=== PATIENT | female | born 1995 | race Caucasian/White ===

== ENCOUNTER 2021-06-01 20:56 | Observation (INO) | payer OTHER, SELFPAY ==
--- NOTE | ~2021-06-01 | CT_ITS ---
EXAMINATION: CT abdomen pelvis w con INDICATION: Left lower quadrant and suprapubic pain TECHNIQUE: Computed tomographic images of the abdomen and pelvis were obtained after the administrati on of 100 cc of Omnipaque 350 intravenous contrast. The dose-length product (DLP) was 344.78 mGy-cm. Automated exposure control and iterative reconstruction technique were employed. COMPARISON: None available FINDINGS: The lung bases are clear. The heart size is normal. The liver, spleen, pancreas, gallbladde r, and adrenal glands are normal. Cysts of the kidneys measure up to 2.6 cm on the left. No pathologi bill enlarged abdominal or pelvic lymph nodes are identified. There is no free intraperitoneal gas o r evidence of bowel obstruction. There appears to be an approximately 7.9 x 7.1 cm degenerating fibro id of the uterine fundus. The left ovary appears to be enlarged and positioned posterior to the uteru s. The visualized osseous structures are unremarkable. IMPRESSION: 1. Enlarged left ovary positioned posterior to the uterus. Recommend pelvic ultrasound to evaluate fo r possible mass and/or ovarian torsion. These findings and recommendations were discussed with Dr. Alfie MD in the Emergency Department at 2320 hours on 06/01/2021. Reviewed, dictated and finalized at location F. ING MILL OPERATOR IMPRESSION: 1. Enlarged left ovary positioned posterior to the uterus. Recommend pelvic ult rasound to evaluate for possible mass and/or ovarian torsion. These findings an d recommendations were discussed with Dr. Claudy Garcia MD in the Emergency Department at 2320 hours on 06/01/2021.
--- NOTE | ~2021-06-01 | US_ITS ---
EXAMINATION: US pelvic complete w TV DATE: 06/02/2021 00:25 INDICATION: Pelvic mass. Enlarged left ovary. Left pelvic pain. TECHNIQUE: Multiple transabdominal and transvaginal sonographic images of the pelvis were obtained. COMPARISON: CT abdomen and pelvis 06/01/2021 FINDINGS: TRANSABDOMINAL ULTRASOUND: The uterus measures 7.2 x 4.6 x 4.2 cm. There is a small volume of free fluid in the pelvis. TRANSVAGINAL ULTRASOUND: There is a 7.6 cm fibroid in the uterine fundus. The endometrial complex measures 8 mm in thickness. The right ovary is not visualized. The left ovary measures 6.3 x 3.7 x 5.5 cm. There is vascular flow in left ovary. IMPRESSION: 1. Enlarged left ovary with vascular flow present. 2. 7.6 cm uterine fibroid. 3. Small volume of free fluid in the pelvis. Reviewed, dictated and finalized at location A. ITATIVE FIELD PROJECT MANAGER
[2021-06-01 21:00] VITALS: BP 135/77; PULSE 103; RESP 18; TEMP 36.6; O2SAT 100
--- NOTE | 2021-06-01 21:17 | ED.ABDPAIN ---
HPI - Abdominal Pain General Chief Complaint: Abdominal Pain Stated Complaint: LLQ pain, nausea Time Seen by Provider: 06/01/21 21:05 Source: patient History of Present Illness HPI narrative: Patient presents with left lower quadrant abdominal pain. Rectum symptoms that started today have been consistent but wax and wanes in intensity. The pain is a sharp pain that does not radiate there is no clear aggravating or alleviating factors. When her pain is intense she feels nauseous wants to throw up she denies any urinary symptoms and no discharge or bleeding or changes in stool. She denies any fevers or prior abdominal surgeries. Related Data Allergies Allergy/AdvReac Type Severity Reaction Status Date / Time amoxicillin [From Augmentin] Allergy Hives Verified 06/01/21 20:59 clavulanic acid Allergy Hives Verified 06/01/21 20:59 [From Augmentin] Penicillins Allergy Unknown Verified 06/01/21 20:59 Review of Systems Review of Systems: CONSTITUTIONAL: Denies fever, chills, or sweats. EYES: Denies visual changes, redness, or discharge. ENT: Denies rhinorrhea, congestion, sore throat, or otalgia. CARDIOVASCULAR: Denies chest pain, palpitations, or edema. RESPIRATORY: Denies cough or dyspnea. GASTROINTESTINAL: Abdominal pain with nausea GENITOURINARY: Denies dysuria or hematuria. SKIN: Denies rash or itching. MUSCULOSKELETAL: Denies back pain, joint pain, or myalgia. NEUROLOGIC: Denies headache, numbness, dizziness, or weakness. PSYCHIATRIC: Denies anxiety or depression. All systems reviewed & are unremarkable except as noted in HPI and below PMFSH Past Medical History Medical History Patient denies significant medical history Social History Social History Living arrangements: with family Exam Narrative: GENERAL: Well-appearing, well-nourished, and in no acute distress. HEAD: Normocephalic, atraumatic. EYES: PERRLA and EOMI. ENT: Nares clear, no rhinorrhea or epistaxis. Mucous membranes moist. NECK: Supple. No masses. No JVD CHEST: Clear to auscultation. No respiratory distress. No wheezes rales or rhonchi HEART: Regular rate and rhythm. No murmur heard. Normal peripheral pulses. ABDOMEN: Moderate suprapubic tenderness no rebound or guarding soft, nondistended, normal active bowel sounds. EXTREMITIES: Normal range of motion. No edema. SKIN: Warm, dry, no rash. NEURO: No focal deficits. Alert and oriented x3. PSYCH: Normal mood and affect. Course Reevaluation(s) Reevaluation #1: Patient is resting more comfortably results thus far reviewed with patient plan to consult TECHNOLOGY LAB TEACHER patient's primary TECHNOLOGY LAB TEACHER is Dr. Ellington Date: 06/02/21 Time: 01:37 Reevaluation #2: Patient was taken to the operating room for further evaluation of her symptoms by TECHNOLOGY LAB TEACHER. Date: 06/02/21 Time: 03:33 Consultations Consultation #1: Dr. Castillo is on-call for Dr. Ellington and is currently reviewing images to assist with developing appropriate care plan. Date: 06/02/21 Time: 01:50 Consultation #2: Dr. Castillo TECHNOLOGY LAB TEACHER at bedside evaluating the patient Date: 06/02/21 Time: 02:27 Vital Signs Vital signs: Vital Signs Temperature 36.6 C 06/01/21 21:00 Pulse Rate 103 H 06/01/21 21:00 Respiratory Rate 18 06/01/21 21:00 Blood Pressure 135/77 06/01/21 21:00 Pulse Oximetry 100 06/01/21 21:00 Temperature 36.6 C 06/02/21 04:50 Pulse Rate 96 06/02/21 05:05 Respiratory Rate 20 06/02/21 05:05 Blood Pressure 118/61 06/02/21 05:05 Pulse Oximetry 100 06/02/21 05:05 MDM - Abdominal Pain MDM Narrative Medical decision making narrative: Patient presented with intermittent severe abdominal pain which started this evening. Initial valuation patient appeared comfortable at abdominal exam was concerning labs obtained were clinically unremarkable do abdominal exam and imaging was obtained which was concerning for uterine and ovarian
[2021-06-01 21:48] LABS: Basophils Percent Auto 0.3 % (0.2-1.2); Eosinophils Percent Auto 0.5 % (0-4.4); Hematocrit 41.3 % (37.0-47.0); Hemoglobin 13.9 g/dL (12.0-15.0); Immature Granulocyte Absolute 0.02 K/mm3 (0.00-0.031); Immature Granulocyte Percent A 0.3 % (0-0.5); Lymphocytes Absolute Auto 2.51 K/mm3 (0.9-3.2); Lymphocytes Percent Auto 32.7 % (18.3-44.2); Mean Corpuscular HGB Conc 33.7 g/dl (32-36); Mean Corpuscular Volume 94.9 fl (80-100); Mean Platelet Volume 9.6 fl (7.4-10.4); Monocytes Absolute Auto 0.6 K/mm3 (0.1-0.6); Monocytes Percent Auto 8.2 % (2.6-8.5); Neutrophils Absolute Auto 4.5 K/mm3 (1.3-6.7); Platelet Count Result 288 k/mm3 (150-375); Red Blood Count 4.35 M/mm3 (4.2-5.4); Red Cell Distribution Width 11.7 % (11.5-14.5); White Blood Count 7.7 K/mm3 (4.5-10.0)
[2021-06-01 21:51] LABS: Add Urine Microscopic? NO; Appearance Urine Clear (Clear); Bilirubin Urine Negative (Negative); Blood Urine Negative (Negative); Color Urine Straw (Yellow); Glucose Urine UA Negative (Negative); Ketones Urine Negative (Negative); Leukocyte Esterase Ur Negative LEU/UL (Negative); Nitrate Urine Negative (Negative); Protein Urine Negative (Negative); Specific Grav Ur 1.017 (1.001-1.035); Urobilinogen Urine Negative mg/dL (<2.0)
[2021-06-01] MEDS: SODIUM CHLORIDE 0.9% IV 1,000 ML 999 ML IV CONT (21:54)
[2021-06-01 21:57] LABS: Lactic Acid Reflex 1.4 mmol/L (0.7-2.1)
[2021-06-01 22:08] LABS: Alanine Aminotransferase 30 U/L (4-35); Albumin Level 4.9 g/dL (3.5-5.1); Alkaline Phosphatase 50 U/L (38-126); Anion Gap 10 mmol/L (8-16); Aspartate Amino Transferase 31 U/L (14-36); Bilirubin,Total 0.4 mg/dL (0.2-1.3); Blood Urea Nitrogen 16 mg/dL (7-17); Carbon Dioxide 27 mmol/L (22-30); Chloride 103 mmol/L (98-107); Estimated CRCL calculation 136 ml/min; Estimated Glomerular Filt Rate > 60; Glucose 106 mg/dL (65-110); Lipase 135 U/L (23-300); Potassium 3.8 mmol/L (3.4-5.0); Sodium 140 mmol/L (137-145)
[2021-06-01 23:41] LABS: Beta HCG Quantitative < 2.39 mIU/ML
[2021-06-02] VITALS (7 sets, daily range): BP systolic 100–118; BP diastolic 46–68; PULSE 77–96; RESP 15–20; TEMP 36.6–36.9; O2SAT 100
[2021-06-02] MEDS: MORPHINE SULFATE (*CRX) 4 MG/ML INJ IV PUSH (00:26)
--- NOTE | 2021-06-02 02:42 | PM.IMHP ---
H&P: HPI History of Present Illness Date/Time: 06/02/21 02:42 Dejah is a 26yo G0, LMP 05/11/21 who presented to the ER with acute, intermittent LLQ pain. She reports the pain started at 11am and has been intermittent, sharp in nature. She reports each episode of pain has become more painful causing her to cry. She now has associated nausea. She and her have been trying to conceive; bhcg negative today. UA/labs normal. CT and WAREHOUSE PROCESSOR US show a large fundal fibroid measuring 6.5x7cm. The right ovary is not visualized. The left ovary is measuring 6cm; with a small 1.6cm cyst-- but on review of imaging the ovary looks edematous. She has not been on OCPs as she's trying to conceive and denies a h/o ovarian cysts or knowing about the uterine fibroid. Chief Complaint: LLQ pain Review of Systems Constitutional: Constitutional: Denies chills and Denies fever(s) Cardiovascular: Cardiovascular: Denies chest pain and Denies rapid heart rate Respiratory: Respiratory: Denies dyspnea Gastrointestinal: Gastrointestinal: Reports abdominal pain, Denies constipation, Denies diarrhea, Reports nausea and Denies vomiting Genitourinary: Genitourinary: Denies abnormal vaginal bleeding, Reports menorrhagia, Reports pelvic pain, Denies vaginal discharge, Denies vaginal dryness and Denies vaginal odor Neurologic: Denies dizziness and Denies headache(s) [facility] Past Medical History Medical History Patient denies significant medical history Social History Social History Living arrangements: with family Meds Home Medications and Allergies Allergies Allergy/AdvReac Type Severity Reaction Status Date / Time amoxicillin [From Augmentin] Allergy Hives Verified 06/01/21 20:59 clavulanic acid Allergy Hives Verified 06/01/21 20:59 [From Augmentin] Penicillins Allergy Unknown Verified 06/01/21 20:59 Vital Signs Vital Signs - 24 hr 06/01/21 21:00 Temperature 97.9 F Pulse Rate 103 H Respiratory Rate 18 Blood Pressure 135/77 Pulse Oximetry 100 Exam Const: General: cooperative, healthy appearing and no acute distress (pain noted with/after exam) Resp: Effort & Inspection: normal respiratory effort Cardio: Rate: regular rate GI: Inspection: non-distended GI Palp: Yes abdominal tenderness, Yes Soft to palpation and Yes Guarding due to palpation present (GI) : External Female Exam: normal external appearance Bimanual exam- vagina & uterus: uterine mobility normal, cervical motion tenderness and enlarged (large fundal fibroid- nontender to palpation) Bimanual Exam- Adnexa, other: tender (on mild palpation) on the left H&P: Results Labs Labs: Short CBC 06/01/21 Range/Units 21:41 WBC 7.7 (4.5-10.0) K/mm3 Hgb 13.9 (12.0-15.0) g/dL Hct 41.3 (37.0-47.0) % Plt Count 288 (150-375) k/mm3 BMP 06/01/21 21:41 Sodium 140 Potassium 3.8 Chloride 103 Carbon Dioxide 27 BUN 16 Creatinine 0.50 L Glucose 106 Calcium 9.0 Liver Function 06/01/21 Range/Units 21:41 Total Bilirubin 0.4 (0.2-1.3) mg/dL AST 31 (14-36) U/L ALT 30 (4-35) U/L Alkaline Phosphatase 50 (38-126) U/L Albumin 4.9 (3.5-5.1) g/dL Urine 06/01/21 Range/Units 21:41 Urine Color Straw (Yellow) Urine Appearance Clear (Clear) Urine pH 7.0 (5.0-9.0) Ur Specific [place] 1.017 (1.001-1.035) Urine Protein Negative (Negative) mg/dL Urine Glucose (UA) Negative (Negative) mg/dL Assessment and Plan Assessment and plan (1) Acute pelvic pain, female: Code(s): R10.2 - Pelvic and perineal pain Status: Acute (2) Ovarian mass, left: Code(s): N83.8 - Other noninflammatory disorders of ovary, fallopian tube and broad ligament Status: Acute Additional Plan - CT and US confirm enlarged ovary; pt has symptoms and pain on exam concerning for ovarian torsion
--- NOTE | 2021-06-02 03:17 | WPDHPUPDATE1 ---
History and Physical Update Update Date/Time: 06/02/21 03:17 History and Physical has been reviewed, including an updated exam of the patient. There are NO changes in the patient's condition. Risks, benefits, and alternatives have been discussed and questions answered. Patient agrees to proceed with procedure.
--- NOTE | 2021-06-02 03:52 | WPDANESEPPF ---
Anes - Initial Pre Proc Eval Procedure: Operation Date: 06/02/21 03:30 Proposed Procedures p Diagnostic Laparoscopy Pos Lap - Tona Castillo MD Date/Time: 06/02/21 03:52 Surgeon: Tona Castillo MD Pre Op Diagnosis: LLQ pain, nausea Patient Data Age: 26 Gender: F Height: 1.7 m Weight: 68.2 kg Last Vital Signs Temp 36.6 C 06/01/21 21:00 Pulse 103 H 06/01/21 21:00 Resp 18 06/01/21 21:00 BP 135/77 06/01/21 21:00 Pulse Ox 100 06/01/21 21:00 Allergies Allergy/AdvReac Type Severity Reaction Status Date / Time amoxicillin [From Augmentin] Allergy Hives Verified 06/01/21 20:59 clavulanic acid Allergy Hives Verified 06/01/21 20:59 [From Augmentin] Penicillins Allergy Unknown Verified 06/01/21 20:59 Laboratory Tests 06/01/21 06/01/21 06/01/21 21:41 21:41 21:41 WBC 7.7 K/mm3 K/mm3 (4.5-10.0) RBC 4.35 M/mm3 M/mm3 (4.2-5.4) Hgb 13.9 g/dL g/dL (12.0-15.0) Hct 41.3 % % (37.0-47.0) MCV 94.9 fl fl (80-100) MCH 32.0 pg pg (26-34) MCHC 33.7 g/dl g/dl (32-36) RDW 11.7 % % (11.5-14.5) Plt Count 288 k/mm3 k/mm3 (150-375) MPV 9.6 fl fl (7.4-10.4) Immature Gran % (Auto) 0.3 % % (0-0.5) Neut % (Auto) 58.0 % % (45.5-73.1) Lymph % (Auto) 32.7 % % (18.3-44.2) [place] % (Auto) 8.2 % % (2.6-8.5) Eos % (Auto) 0.5 % % (0-4.4) Baso % (Auto) 0.3 % % (0.2-1.2) Lymph # (Auto) 2.51 K/mm3 K/mm3 (0.9-3.2) [place] # (Auto) 0.6 K/mm3 K/mm3 (0.1-0.6) Eos # (Auto) 0.0 K/mm3 K/mm3 (0-0.3) Baso # (Auto) 0.0 K/mm3 K/mm3 (0.0-0.1) Abs Immat Gran (auto) 0.02 K/mm3 K/mm3 (0.00-0.031) Absolute Neuts (auto) 4.5 K/mm3 K/mm3 (1.3-6.7) Absolute Nucleated RBC 0.0 K/mm3 K/mm3 (0.0-0.012) Nucleated RBC % 0.0 % % (0.0-0.2) Sodium 140 mmol/L mmol/L (137-145) Potassium 3.8 mmol/L mmol/L (3.4-5.0) Chloride 103 mmol/L mmol/L (98-107) Carbon Dioxide 27 mmol/L mmol/L (22-30) Anion Gap 10 mmol/L mmol/L (8-16) BUN 16 mg/dL mg/dL (7-17) Creatinine 0.50 mg/dL L mg/dL (0.7-1.0) Estim Creat Clear Calc 136 ml/min ml/min Estimated GFR > 60 (59 - ) Glucose 106 mg/dL mg/dL (65-110) Lactic Acid Calcium 9.0 mg/dL mg/dL (8.4-10.2) Total Bilirubin 0.4 mg/dL mg/dL (0.2-1.3) AST 31 U/L U/L (14-36) ALT 30 U/L U/L (4-35) Alkaline Phosphatase 50 U/L U/L (38-126) Total Protein 8.0 g/dL g/dL (6.3-8.2) Albumin 4.9 g/dL g/dL (3.5-5.1) Lipase 135 U/L U/L (23-300) Beta HCG, Quant Urine Color Straw (Yellow) Urine Appearance Clear (Clear) Urine pH 7.0 (5.0-9.0) Ur Specific [place] 1.017 (1.001-1.035) Urine Protein Negative mg/dL mg/dL (Negative) Urine Glucose (UA) Negative mg/dL mg/dL (Negative) Urine Ketones Negative mg/dL mg/dL (Negative) Ur Blood (Man) Negative (Negative) Urine Nitrate Negative (Negative) Urine Bilirubin Negative (Negative) Urine Urobilinogen Negative mg/dL mg/dL (<2.0) Leukocyte Esterase Rfl Negative LOC/UL LOC/UL (Negative) 06/01/21 06/01/21 21:41 21:41 WBC RBC Hgb Hct MCV MCH MCHC RDW Plt Count MPV Immature Gran % (Auto) Neut % (Auto) Lymph % (Auto) [place] % (Auto) Eos % (Auto) Baso % (Auto) Lymph # (Auto) [place] # (Auto) Eos # (Auto) Baso # (Auto) Abs Immat Gran (auto) Absolute Neuts
[2021-06-02] MEDS: LACTATED RINGERS 1,000 ML 30 ML IV CONT ×3 (04:00→04:51)
[2021-06-02] MEDS: BUPIVACAINE/EPINEPHRINE 0.25% 10 ML VIAL 20 ML INFILTRATE (04:31)
--- NOTE | 2021-06-02 05:00 | P.OP_ITS ---
Procedure Note - Detailed Date of Procedure 06/02/21 Pre-op Diagnosis LLQ pain, nausea Post-op Diagnosis other (left ovarian torsion) Procedure Performed Diagnostic laparoscopy, detorsion of ovary Surgeon Tona Castillo MD Air Crew Member Chelsey Pickard Anesthesia general and local (20cc of 0.25% marcaine w/ epi) Indications 26yo G0, LMP 05/11/21 who presented to the ER with intermittent, severe LLQ pain since 11am on 06/01/21. The pain was lasting longer and becoming more severe with associated nausea. US/CT showed an enlarged left ovary; likely edematous. The patients symptoms and exam findings were concerning for ovarian torsion and she was counseled on need for diagnostic laparoscopy. All questions/concerns were addressed and the appropriate consents were signed. Findings Uterus sounded to 8cm; normal cervix. On entry into the abdomen, small amount of clear/yellow fluid was noted. The uterus was noted to have a 7cm fundal fibroid. The right ovary and tube were normal. The left ovary and tube were noted to be torsed x2 around the IP. The left ovary was edematous; no obvious cysts were noted. Good hemostasis at the end of case. Description of Procedure Dejah was taken to the operating room where she was placed under general, endotracheal anesthesia without complications. She was then prepped and draped in the usual sterile fashion in the dorsal lithotomy position in low Armando stirrups, with her arms tucked at her side, and a strap over her chest. A time- out was performed and no preoperative antibiotics were indicated. Attention was turned down below where the Melchor catheter was placed. A bivalved speculum was placed within the vagina and the cervix was easily identified. The anterior lip of the cervix was grasped with a single-tooth tenaculum and the uterus was sounded to 8 cm. The diagnostic uterine manipulator was then placed in the uterus and the balloon was insufflated. My gloves were changed and my attention was turned to the abdomen. An umbilical incision was made and a 5 mm trocar was then placed under direct visualization without complications. Patient was placed in steep Trendelenburg and the above findings were noted. Two additional 5 mm ports were placed in the right and left lower quadrants under direct visualization without complications. The fluid was suctioned free using a suction pipe threading machine operator. The uterus was then elevated with the help of the uterine manipulator and the suction pipe threading machine operator. The right ovary and tube were easily visualized and found to be normal. The left ovary and tube were noted to be torsed twice around its pedicle. Using blunt graspers the ovary was de-torsed without complications and good blood flow was noted. The ovary was examined and no obvious cysts were noted. The ovaries were placed in the posterior cul-de-sac and the uterus was returned to its normal position over them. All instruments were removed from the abdomen. The insufflation was released. The 3 laparoscopic incisions were reapproximated using 4-0 Monocryl in a subcuticular fashion and covered with Dermabond. The incisions were then infiltrated using 0.25% Marcaine with epinephrine to provide better postop pain control. Sponge, lap, instrument, and needle counts were correct at the end of the procedure. Patient was awoken from general anesthesia and taken to recovery in stable conditions with plans of extended recovery until discharge this afternoon. Estimated Blood Loss 5 IV Fluids 1,000 Urine Output 100 Drains No Packing No Pathology none sent Complications No immediate complications Condition stable Disposition other (extended recovery)
--- NOTE | 2021-06-02 06:44 | PC.NURSE ---
This patient, Dejah Horton, was received from PACU on 06/02/21 at 0624 per bed. Patient/family oriented to unit policies and routines.
[2021-06-02] MEDS: DOCUSATE SODIUM 100 MG CAPSULE PO (09:36)
[2021-06-02] MEDS: IBUPROFEN 600 MG TABLET PO (09:36)
--- NOTE | 2021-06-12 10:32 | PM.DS ---
DS: Admitting Diagnosis Discharge Date 06/02/21 Admitting Diagnosis LLQ abdominal pain DS: Discharge Diagnosis Discharge Diagnosis (1) S/P laparoscopy: Code(s): Z98.890 - Other specified postprocedural states Status: Acute (2) Ovarian torsion: Code(s): N83.519 - Torsion of ovary and ovarian pedicle, unspecified side Status: Acute DS: Summary Hospital Course Hospital Course: Dejah is a 26yo G0 who presented to the ER with acute onset, but intermittent LLQ pain associated with nausea. CT and US were performed and showed a left edematous ovary. She was counseled on the findings and concerning for left ovarian torsion and need for diagnostic laparoscopy. She underwent diagnostic laparoscopy where left ovarian torsion was confirmed; no ovarian cyst was noted therefore the ovary was untorsed and found to be normal. She was monitoring outpatient to verify her pain had improved. It decreased to 2/10 (only had incisional pain). She was able to tolerate regular diet, ambulate, and void. She was discharged home in a stable condition with ER return precautions, incision instruction as well as pelvic rest/no heavy lifting. Her medications were sent to her pharmacy and she will follow up outpatient in 2wks. Status at Discharge Functional status at discharge: independent ambulation Overall status at discharge: patient is back to baseline Time Spent with Patient Time attestation: Total time spent providing and/or coordinating discharge services: Time spent: Less than 30 minutes Exam Const: General: cooperative, healthy appearing, comfortable and no acute distress Orientation/consciousness: patient oriented x3 Resp: Effort & Inspection: normal respiratory effort Cardio: Rate: regular rate GI: Inspection: non-distended and incision (c/d/i covered with dermabond) GI Palp: Yes abdominal tenderness (appropriate) and Yes Soft to palpation Auscultation: normal bowel sounds Skin: General skin exam: normal color Neuro: General: patient oriented x3 Extrem: General: normal to inspection Psych: Appearance: grossly normal Affect: normal affect Attitude: cooperative Discharge Plan Discharge Attending physician on discharge: Tona Castillo Consulting providers: Lorenzo Hager ; Jamie Barr V. Discharging Clinician: Tona Castillo Anticipated Discharge Date/Time: 06/02/21 12:00 Patient Disposition: Home, Self-Care Activity: may shower and pelvic rest Diet: regular Discharge Instructions: no heavy lifting x 2 weeks no [address] when taking the percocet Stand Alone Forms: General Discharge Instructions Follow-up/Referrals: Tona Castillo MD [Physician] - 2 Weeks Discharge Medications: New oxycodone-acetaminophen [Percocet] 5-325 mg tablet 2 tablet PO Q4-6H PRN (Reason: pain) 3 Days Qty: 24 RF: 0 ibuprofen 800 mg tablet 800 mg PO TID 10 Days Qty: 30 RF: 0 docusate sodium [Colace] 100 mg capsule 100 mg PO BID 20 Days Qty: 40 RF: 0 Date of admission: 06/02/21 06:14 Primary Care Provider: PHYSICIAN,NOC TECHNICIAN Admitting Provider: Tona Castillo Attending physician on admission: Tona Castillo Condition: Stable
== END 2021-06-02 12:20 | disposition home or self-care (01) ==
LOC: ANHED 21:30 → ANHOBOP 06-02 02:54 → ANHOB2 06-02 06:32
PROVIDERS: Admitting Provider Obstetrics & Gynecology; Emergency Provider Emergency Medicine; Visit Provider Obstetrics & Gynecology
PROC: (CPT 49320; principal; 2021-06-02 03:30)
DX: N83.512 Torsion of left ovary and ovarian pedicle (principal); D25.9 Leiomyoma of uterus, unspecified
CPT/HCPCS: 58999; 36415; 74177; 76830; 76856; 80053; 81003; 81025; 83605; 83690; 84702; 85025; 96361; 96374; 96375; 99285; A9270; G0378; J0131; J0330; J1100; J1885; J2250; J2270; J2405; J2704; J2710; J3010; J7030; J7120; Q9967

== ENCOUNTER 2022-01-29 14:47 | Emergency (ER) | payer OTHER, SELFPAY ==
--- NOTE | 2022-01-29 14:54 | ED.URI ---
HPI - URI/Sore Throat General Chief Complaint: Upper Respiratory Infection Stated Complaint: sorethroat,fever Time Seen by Provider: 01/29/22 14:55 Source: patient Mode of arrival: ambulatory Limitations: no limitations History of Present Illness HPI Narrative: Beth is a 27-year-old female patient presenting to the clinic today with complaints of sore throat and fever times 1-2 days. Highest temp of a 102? F. She reports no known sick contacts. She is currently 6 weeks . She contacted her PCP and they recommend she come here to be evaluated MD elicited complaint: sore throat and nasal congestion Related Data Home Medications Medication Instructions Recorded Confirmed No Home Medications 01/29/22 01/29/22 Allergies Allergy/AdvReac Type Severity Reaction Status Date / Time amoxicillin [From Augmentin] Allergy Hives Verified 01/29/22 15:20 clavulanic acid Allergy Hives Verified 01/29/22 15:20 [From Augmentin] Penicillins Allergy Unknown Verified 01/29/22 15:20 Review of Systems Review of Systems: Pertinent positives per HPI. Patient denies any, rash, headache, visual changes, dizziness, cough, shortness of breath, chest pain, palpitations, nausea, vomiting, diarrhea, constipation, abdominal pain, or any urinary issues. [facility] Past Medical History Medical History Endometriosis determined by laparoscopy Patient denies significant medical history Surgical History Surgical History H/O myomectomy 09/2021 S/P laparoscopy 05/2021 for left ovarian torsion Family History Family History Grandparent Breast cancer Other Diabetes mellitus Hypertension Social History Social History Smoking status: Never smoker Alcohol intake: current Alcohol use details: socially Substance use: never Substance use type: does not use Additional occupation/education comments: health insurance Gender identity (if verbalized by the patient): Female Sexual Orientation (if Verbalized by the Patient): Straight or Heterosexual Comments At the time of my signature, I reviewed and agree with the nursing past medical, surgical, social, and family history. There is no relevant family history pertinent to the patient complaint. Exam Narrative: General: Well-developed, well nourished, in no apparent distress Head: Normocephalic, atraumatic Eyes: Pupils equally round and reactive to light bilaterally, EOM intact, sclera and conjunctive clear, no discharge, lids normal Ears: TMs intact and clear, ear canals clear, no drainage, grossly hearing normal. Nose: Nares patent, clear nasal discharge, no inflammation, no sinus tenderness. Mouth: Oral pharynx without lesions or masses, good dentition, MMM. Oropharynx with Neck: Supple, trachea midline, mild enlargement of anterior cervical nodes, no thyroid masses or goiter palpable. Cardio: Regular rate and rhythm, s1 and s2 normal, no murmur appreciated. Resp: Clear to auscultation bilaterally, no rhonchi, rales, wheezing or rubs Abdomen: Soft, pliable, nontender to palpation, bowel sounds present in all 4 quadrants, no organomegaly, no CVAT tenderness Course Course Emergency Course: Portions of this record may have been created with voice recognition software. Level of Care: Express Care Visit Vital Signs Vital signs: Vital Signs Temperature 37.4 C 01/29/22 14:58 Pulse Rate 117 H 01/29/22 14:58 Respiratory Rate 18 01/29/22 14:58 Blood Pressure 126/64 01/29/22 14:58 Pulse Oximetry 98 01/29/22 14:58 Oxygen Delivery Room Air 01/29/22 14:58 Temperature 37.4 C 01/29/22 14:58 Pulse Rate 117 H 01/29/22 14:58 Respiratory Rate 18 01/29/22 14:58 Blood Pressure 126/64 01/29/22
[2022-01-29 14:58] VITALS: BP 126/64; PULSE 117; RESP 18; TEMP 37.4; O2SAT 98
== END 2022-01-29 16:06 | disposition home or self-care (01) ==
PROVIDERS: Emergency Provider Nurse Practitioner Family
DX: O98.511 Other viral diseases complicating pregnancy, first trimester (principal); B34.9 Viral infection, unspecified; O99.511 Diseases of the respiratory system complicating pregnancy, first trimester; Z3A.01 Less than 8 weeks gestation of pregnancy; J06.9 Acute upper respiratory infection, unspecified; J02.9 Acute pharyngitis, unspecified; Z20.822 Contact with and (suspected) exposure to COVID-19
CPT/HCPCS: 81003; 87081; 87426; 87804; 87880; 99213; C9803; G0463

== ENCOUNTER → 2022-07-06 08:14 | Outpatient (CLI) | payer OTHER, SELFPAY ==
--- NOTE | ~2022-07-06 | US_ITS ---
Limited Abdominal Sonogram: Real-time sonographic imaging of the right upper quadrant was performed. Clinical History: Right upper quadrant pain Findings: The liver appears normal with no evidence of mass lesion or bile duct dilatation. Main por noel vein demonstrates normal direction of flow. The gallbladder is well distended, and appears normal with no evidence of gallstone. Probable subtle 3 mm gallbladder wall polyp. The common bile duct julio c sures 4 mm. The visualized pancreas, aorta, and IVC are unremarkable. Impression: Probable 3 mm gallbladder wall polyp. Reviewed, dictated and finalized at location M. Impression: Probable 3 mm gallbladder wall polyp.
== END ==
PROVIDERS: PCP Student in an Organized Health Care Education/Training Program; Visit Provider Student in an Organized Health Care Education/Training Program
DX: R10.11 Right upper quadrant pain (principal)
CPT/HCPCS: 76705

== ENCOUNTER 2022-08-20 10:04 | Outpatient (CLI) | payer OTHER, SELFPAY ==
[2022-08-20 10:22] VITALS: BP 137/77; PULSE 93
[2022-08-20 10:30] VITALS: BP 127/77; PULSE 79
[2022-08-20 10:45] VITALS: BP 123/69; PULSE 73
[2022-08-20 11:00] VITALS: BP 126/71; PULSE 79
[2022-08-20 11:15] VITALS: BP 128/75; PULSE 83
--- NOTE | 2022-08-20 11:17 | PC.NURSE ---
Spoke with Dr. Castillo at [phone] via telephone regarding patient's negative ROM+ test results. MD made aware that tracing is category I with uterine irritability, but patient denies feeling any contractions or pain. Patient to follow up with MD in office during regular scheduled appointment. Verbal orders for discharge.
[2022-08-20 11:22] VITALS: BP 127/77; PULSE 75
== END 2022-08-20 11:24 | disposition home or self-care (01) ==
LOC: ANHOBOP 10:07 → ANHOBPP 10:08
PROVIDERS: Visit Provider Obstetrics & Gynecology
DX: O42.90 Premature rupture of membranes, unspecified as to length of time between rupture and onset of labor, unspecified weeks of gestation (principal); Z3A.00 Weeks of gestation of pregnancy not specified
CPT/HCPCS: 59025; 84112; 99199

== ENCOUNTER 2022-09-04 10:39 | Outpatient (CLI) | payer OTHER, SELFPAY ==
[2022-09-04 11:06] LABS: Hematocrit 35.2 % (37.0-47.0); Hemoglobin 11.9 g/dL (12.0-15.0); Mean Corpuscular HGB Conc 33.8 g/dl (32-36); Mean Corpuscular Hemoglobin 32.1 pg (26-34); Mean Corpuscular Volume 94.9 fl (80-100); Platelet Count Result 219 k/mm3 (150-375); Red Blood Count 3.71 M/mm3 (4.2-5.4); Red Cell Distribution Width 12.7 % (11.5-14.5); White Blood Count 10.7 K/mm3 (4.5-10.0)
[2022-09-05 15:56] LABS: Rapid Plasma Reagin Non-Reactive (NonReactive)
== END 2022-09-04 10:40 | disposition home or self-care (01) ==
LOC: ANHLAB 10:42
PROVIDERS: Visit Provider Obstetrics & Gynecology
DX: Z34.93 Encounter for supervision of normal pregnancy, unspecified, third trimester (principal); Z3A.00 Weeks of gestation of pregnancy not specified
CPT/HCPCS: 36415; 85027; 86592; 86850; 86900; 86901

== ENCOUNTER 2022-09-05 05:27 | Inpatient (IN) | payer OTHER, SELFPAY ==
--- NOTE | 2022-09-04 13:32 | PM.IMHP ---
H&P: HPI History of Present Illness Date/Time: 09/05/22 06:30 Chief Complaint: scheduled primary section Narrative: Dejah is a 27yo @ 37.1wks who presents for scheduled section. She had a large intramural fundal fibroid that was removed ~6 months before conceiving. She reports good movement. No contractions, leakage of fluid, or vaginal bleeding. She has had regular care. Her is complicated by: - H/o LSC fundal myomectomy 09/2021; will need pLTCS @ 37wks Review of Systems Constitutional: Constitutional: Denies chills and Denies fever(s) Eyes: Eyes: Denies change in vision Cardiovascular: Cardiovascular: Denies chest pain Respiratory: Respiratory: Denies dyspnea Gastrointestinal: Gastrointestinal: Denies abdominal pain Genitourinary: Genitourinary: Denies abnormal vaginal bleeding Neurologic: Denies headache(s) PMFSH Past Medical History Medical History Endometriosis determined by laparoscopy Patient denies significant medical history Suppression of menses Surgical History Surgical History H/O myomectomy 09/2021 S/P laparoscopy 05/2021 for left ovarian torsion Family History Family History Grandparent Breast cancer Sibling Diabetes mellitus Mother Hypertension Social History Social History Smoking status: Never smoker Alcohol intake: never Substance use: never Substance use type: does not use Lack of Transportation: No Lack of Food: Never True Current Housing: I Have Housing Concerned About Future Housing: No Difficulty Paying Gas/Electric Bills: No Difficulty Paying for Meds: No Currently Unemployed: No Education: Bachelor's Degree Difficulty w/ Childcare or Family Care: No Living arrangements: with family 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 Gender identity (if verbalized by the patient): Female Sexual Orientation (if Verbalized by the Patient): Straight or Heterosexual Spiritual care concerns: No Meds Home Medications and Allergies Home Medications Medication Instructions Recorded Confirmed Type fluocinolone 0.01 % scalp oil and 1 ea topical MONTHLY 11/10/22 05/31/23 History shower cap prenat.vits,sho,[id number] 1 tablet PO DAILY 03/15/22 09/05/22 History Allergies Allergy/AdvReac Type Severity Reaction Status Date / Time amoxicillin [From Augmentin] Allergy Intermediate Hives Verified 09/05/22 06:12 clavulanic acid Allergy Intermediate Hives Verified 09/05/22 06:12 [From Augmentin] Penicillins Allergy Intermediate Unknown Verified 09/05/22 06:12 Exam Const: General: cooperative, healthy appearing, comfortable and no acute distress Resp: Effort & Inspection: normal respiratory effort Cardio: Rate: regular rate GI: GI Palp: No abdominal tenderness : Other: FHT's: 130's/ mod gwendolyn/ + accels/ no decels - cat 1 TOCO: irregular ctx Presentation: cephalic Membranes: intact Skin: General skin exam: normal color Neuro: General: patient oriented x3 Extrem: General: normal to inspection Psych: Appearance: grossly normal Affect: normal affect Attitude: cooperative Assessment and Plan Assessment and plan (1) H/O myomectomy: Code(s): Z98.890 - Other specified postprocedural states Status: Acute Plan - due to h/o fundal myomectomy; treated as though she has had a classical and primary section is recommended at 37wks - Risks and benefits explained in detail
[2022-09-05] VITALS (58 sets, daily range): BP systolic 98–151; BP diastolic 56–108; PULSE 63–116; RESP 11–18; TEMP 36.5–37.7; O2SAT 98–100; BMI 28.3
--- NOTE | 2022-09-05 06:16 | LDADM ---
This patient, Dejah Horton, was admitted to Labor/Delivery/Recovery 119 on 09/05/22 at 05:27. Plans for labor, pain management and were discussed with patient. Patient/family oriented to hospital policies and general routines including ID bracelet, bed and alarms, visiting hours, pain management, procedures, bathroom and other care routines, personal items, smoking policy, room service/diet and guest tray routines, infant security routines, and visiting hours. Patient/Family are encouraged to report perceived risks to care and to ask questions if they do not understand what they are told or what they should do. See OBIX for further documentation.
--- NOTE | 2022-09-05 06:32 | WPDHPUPDATE1 ---
History and Physical Update Update Date/Time: 09/05/22 06:32 History and Physical has been reviewed, including an updated exam of the patient. There are NO changes in the patient's condition. Risks, benefits, and alternatives have been discussed and questions answered. Patient agrees to proceed with procedure.
[2022-09-05] MEDS: LACTATED RINGERS 1,000 ML 125 ML IV CONT ×3 (06:36→08:34)
--- NOTE | 2022-09-05 07:02 | WPDANESEPPF ---
Anes - Initial Pre Proc Eval Procedure: Operation Date: 09/05/22 07:30 Proposed Procedures p Section - Tnoa Castillo MD Date/Time: 09/05/22 07:02 Surgeon: Tona Castillo MD Pre Op Diagnosis: C/S Patient Data Age: 27 Gender: F Height: 1.7 m Weight: 82 kg Last Vital Signs Pulse 101 H 09/05/22 05:45 BP 138/87 09/05/22 05:45 O2 Del Method Room Air 09/05/22 06:15 Allergies Allergy/AdvReac Type Severity Reaction Status Date / Time amoxicillin [From Augmentin] Allergy Intermediate Hives Verified 09/05/22 06:12 clavulanic acid Allergy Intermediate Hives Verified 09/05/22 06:12 [From Augmentin] Penicillins Allergy Intermediate Unknown Verified 09/05/22 06:12 Home Medications Medication Instructions Recorded Confirmed Type fluocinolone 0.01 % scalp oil and 1 ea topical MONTHLY 02/15/22 09/05/22 History shower cap prenat.vits,sho,[id number] 1 tablet PO DAILY 03/15/22 09/05/22 History Patient hx anesthesia problems: none Family hx anesthesia problems: none Results Review: All pre-operative results and documents have been reviewed as part of the pre-operative evaluation. [facility] Past Medical History Medical History Endometriosis determined by laparoscopy Patient denies significant medical history Suppression of menses Surgical History Surgical History H/O myomectomy 09/2021 S/P laparoscopy 05/2021 for left ovarian torsion Family History Family History Grandparent Breast cancer Sibling Diabetes mellitus Mother Hypertension Social History Social History Smoking status: Never smoker Alcohol intake: never Substance use: never Substance use type: does not use Lack of Transportation: No Lack of Food: Never True Current Housing: I Have Housing Concerned About Future Housing: No Difficulty Paying Gas/Electric Bills: No Difficulty Paying for Meds: No Currently Unemployed: No Education: Bachelor's Degree Difficulty w/ Childcare or Family Care: No Living arrangements: with family 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 Gender identity (if verbalized by the patient): Female Sexual Orientation (if Verbalized by the Patient): Straight or Heterosexual Spiritual care concerns: No Anes - Eval Final PreProcedure Day of Procedure 09/05/22 07:02 Patient weight: normal Heart: regular rate and rhythm Lungs: clear to auscultation Airway: Mallampati scale class II Neurological: alert and oriented Last oral intake: >/= 8 hours ASA classification: II Emergent: no Anesthetic plan: proceed Anesthesia type and monitoring: regional spinal and standard monitoring Results Review: All pre-operative results and documents have been reviewed as part of the pre-operative evaluation. Informed Consent: The patient's anesthetic plan and its attendant risks and benefits were discussed with the patient/family/POA. Questions were solicited and answers provided to the satisfaction of the patient/family/POA.
[2022-09-05] MEDS: ceFAZolin 2 GM/D5W 50 ML 2 GM/50 ML BAG IVPB (07:31)
[2022-09-05] MEDS: KETOROLAC 30 MG/ML VIAL (*BKC) IV PUSH ×3 (08:15→19:12)
--- NOTE | 2022-09-05 08:35 | PM.OBPRVD ---
OB - Delivery Note Procedure Delivery date: 09/05/22 Procedure: Procedures Operation Date: 09/05/22 07:30 <No data on this case meets the specified criteria> Events: Other (prior 10cm fundal myomectomy) Quantitative Blood Loss (ml): 515 Anesthesia type: Spinal Disposition: PACU Baby Date of : 09/05/22 Time of : 07:59 Weeks of gestation at delivery: 37 gender: Male Weight (pounds): 7 Weight (ounces): 0 presentation: vertex Placenta delivery description: Expressed Cord Vessel Description: 3 Vessels and Delayed Cord Clamping score one minute: 8 score five minutes: 9 Narrative: She was counseled on all risks and benefits in detail. She was taken to the operating room where spinal was placed. She was then prepped and draped in the normal sterile fashion. She received 2g Ancef and a time out was performed. A Pfannenstiel incision was made in the skin and carried down to the underlying fascia. The fascia was nicked on either side of the midline and the fascial incision was extended laterally and superiorly using curved Graham scissors. The fascia was then elevated using [place] clamps and the underlying rectus muscles were dissected off the fascia, superiorly and inferiorly. The rectus muscles were then in the midline and the peritoneum was entered bluntly. Once adequate exposure was obtained, a Mobius self retractor was placed within the abdomen. A low transverse incision was made on the lower uterine segment and clear fluid was noted. The occiput was brought to the hysterotomy but not easily delivered; a kiwi vacuum was placed and with one application and one pull, the head was easily delivered. The shoulders and body then followed without complications. The had spontaneous cry and the mouth and nose were bulb suctioned. The cord was clamped and cut and the was handed off to the awaiting pediatric nurse. A segment of the cord was collected for cord gases. The remaining cord blood was collected for typing. With pitocin infusing, the placenta delivered with gentle traction on the cord without complications. The uterus was then cleared out of all clots and debris using a clean, moist lap. The hysterotomy was then repaired in a running, interlocking fashion using 0 Vicryl. A second layer imbricating suture was then made using 0 Vicryl. The hysterotomy was found to be hemostatic and good uterine tone was noted. The bilateral adnexa were examined and found to be normal. The pelvis was cleared of all clots and fluid. The Mobius retractor was removed from the abdomen. The peritoneum, muscle, and fascia were examined and made hemostatic with bovie cautery. The fascia was then repaired using a 0 Vicryl suture in a running fashion. The subcutaneous tissue was then irrigated and made hemostatic with bovie cautery. The subcutaneous tissue was then reapproximated using 2-0 Vicryl. The skin was then closed using 4-0 Monocryl in a running subcuticular fashion. A Mepilex dressing was placed over the incision. Sponge, lap, needle and instrument counts were correct at the end of the procedure x2. The patient tolerated the procedure well and was taken to recovery in a stable condition. [facility] Delivery Billing Delivery Delivery: Delivery Charge
--- NOTE | 2022-09-05 09:11 | PC.NURSE ---
FHT found in OR using U/S transducer before procedure start. At 0739, FHT were 130.
[2022-09-05] MEDS: OXYTOCIN 30 UNITS/NS 500 ML 30 UNITS/500 ML BAG 125 UNITS IV CONT (10:36)
--- NOTE | 2022-09-05 11:05 | OBPPTRN ---
Patient transferred to post room # 290 via stretcher accompanied by mother and spouse. PT transferred to bed via maxi air without difficulty. Support person present. PT oriented to unit, room, information board, rooming in, admission packet and security measures. PT introductions made and plan of care discussed per post op c section, pain management breast pumping, baby transferred to [facility] and daily care activities. PT received such instructions per one to one discussion mom baby care guide and demonstrations this shift. no barriers to learning identified . Patient verbalizes understanding.
[2022-09-05] MEDS: SIMETHICONE 80 MG TAB.CHEW PO ×2 (13:26→16:55)
[2022-09-05] MEDS: HYDROcodone/acetaminophen (*CRX) 5-325 MG TABLET 1 TAB PO ×2 (15:04→19:13)
[2022-09-05] MEDS: DEXTROSE 5%/0.45% SOD CHL 1,000 ML 125 ML IV CONT (15:06)
[2022-09-05] MEDS: LANOLIN (LANSINOH) 7.5 GM CREAM 1 APPLIC TOPICAL (15:07)
--- NOTE | 2022-09-05 15:34 | PC.NURSE ---
[id number] Upon entering the room patient is crying related to the separation from her . Primary RN is present. Pt was recently initiated with pumping and there is a concern regarding the flange fit. 21mm flange replaced the 24mm and discussion was had regarding the flange being too big and not appropriate. Mother states she has a Spectra pump at home and 15mm flange ordered. Encouraged mother to use her resources here and at [facility]. Reviewed and practiced the art of hand expression along with gentle nipple stretching to stimulate milk production 8-12 times in a 24 hour period. Shared with mother that it would be appropriate to have someone bring her personal pump to the hospital to initiate pumping after the first 24-48 hours. Resources provided for inpatient and outpatient services with the feeding sheet, mom/baby guide and name written on the white board. Mother voiced understanding of information and will call if there is a request for assistance. Reported to the primary RN.
[2022-09-05] MEDS: DOCUSATE SODIUM 100 MG CAPSULE PO (16:55)
[2022-09-05] MEDS: LIDOCAINE 5% PATCH 1 PATCH TRANSDERM (16:56)
[2022-09-06 00:15] VITALS: BP 134/82; PULSE 99; RESP 16; TEMP 37.1; O2SAT 99
[2022-09-06] MEDS: HYDROcodone/acetaminophen (*CRX) 5-325 MG TABLET 1 TAB PO ×3 (01:57→22:27)
[2022-09-06] MEDS: KETOROLAC 30 MG/ML VIAL (*BKC) IV PUSH (01:59)
[2022-09-06 05:00] VITALS: BP 129/70; PULSE 84; RESP 16; TEMP 36.9; O2SAT 100
[2022-09-06 05:06] LABS: Basophils Percent Auto 0.2 % (0.2-1.2); Eosinophils Percent Auto 0.1 % (0-4.4); Hematocrit 29.9 % (37.0-47.0); Hemoglobin 9.8 g/dL (12.0-15.0); Immature Granulocyte Absolute 0.04 K/mm3 (0.00-0.031); Immature Granulocyte Percent A 0.4 % (0-0.5); Lymphocytes Absolute Auto 1.26 K/mm3 (0.9-3.2); Lymphocytes Percent Auto 11.3 % (18.3-44.2); Mean Corpuscular HGB Conc 32.8 g/dl (32-36); Mean Corpuscular Hemoglobin 31.4 pg (26-34); Mean Corpuscular Volume 95.8 fl (80-100); Mean Platelet Volume 10.4 fl (7.4-10.4); Monocytes Absolute Auto 0.5 K/mm3 (0.1-0.6); Monocytes Percent Auto 4.7 % (2.6-8.5); Neutrophils Absolute Auto 9.3 K/mm3 (1.3-6.7); Neutrophils Percent Auto 83.3 % (45.5-73.1); Platelet Count Result 198 k/mm3 (150-375); Red Blood Count 3.12 M/mm3 (4.2-5.4); White Blood Count 11.2 K/mm3 (4.5-10.0)
--- NOTE | 2022-09-06 07:00 | PC.NURSE ---
PT introductions made and plan of care discussed per post , c section, pain management, breast pumping, daily care activities. PT sole recipient of such instructions and no barriers to learning identified at this time. PT received such instructions per one to one discussion, mom baby care guide and demonstrations this shift. PT verbalized understanding of such care. Anticipating pass to [facility]
--- NOTE | 2022-09-06 07:13 | P.PNOB_ITS ---
OB - PN: Subj Subjective Date/time seen: 09/06/22 07:13 Narrative: POD#1 Dejah reports doing well today. 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 Her pain is controlled. She is tolerating regular diet, voiding, passing gas, and ambulating without issues. She denies any issues with her incision. She is pumping as her son was transferred for breathing issues (has chest tube now). OB - PN: Obj Data Labs 09/06/22 04:53 Labs: Laboratory Results - last 24 hr 09/06/22 04:53 WBC 11.2 H RBC 3.12 L Hgb 9.8 L Hct 29.9 L MCV 95.8 MCH 31.4 MCHC 32.8 RDW 13.0 Plt Count 198 MPV 10.4 Immature Gran % (Auto) 0.4 Neut % (Auto) 83.3 H Lymph % (Auto) 11.3 L Elbert % (Auto) 4.7 Eos % (Auto) 0.1 Baso % (Auto) 0.2 Lymph # (Auto) 1.26 Elbert # (Auto) 0.5 Eos # (Auto) 0.0 Baso # (Auto) 0.0 Abs Immat Gran (auto) 0.04 H Absolute Neuts (auto) 9.3 H Absolute Nucleated RBC 0.0 Nucleated RBC % 0.0 OB - PN A/P Assessment and Plan (1) Delivery by section: Status: Acute Plan day: 1 Plan: routine care Comments: - ok to have pass to see her son Time Spent With Patient Time: Total time spent is greater than 50% in coordination of care (as documented) at patient's floor/unit and/or counseling patient: Review of Systems Constitutional: Constitutional: Denies chills, Denies fever(s) and Denies headache(s) Eyes: Eyes: Denies change in vision ENT: Denies dizziness and Denies headache(s) Cardiovascular: Cardiovascular: Denies chest pain, Denies palpitations and Denies dyspnea Respiratory: Respiratory: Denies cough and Denies dyspnea Gastrointestinal: Gastrointestinal: Denies nausea and Denies vomiting Genitourinary: Comments: normal bleeding Neurologic: Denies dizziness and Denies headache(s) Endocrine: Endocrine: Denies palpitations Exam Const: General: cooperative, healthy appearing, comfortable and no acute distress Orientation/consciousness: patient oriented x3 Resp: Effort & Inspection: normal respiratory effort Auscultation: clear to auscultation bilaterally Cardio: Rate: regular rate GI: Inspection: non-distended and incision (covered with clean dressing) GI Palp: Yes abdominal tenderness (appropriate) and Yes Soft to palpation Auscultation: normal bowel sounds : Other: fundus firm Skin: General skin exam: normal color Neuro: General: patient oriented x3 Extrem: General: normal to inspection Psych: Appearance: grossly normal Affect: normal affect Attitude: cooperative
--- NOTE | 2022-09-06 07:48 | WPDANLDPN2 ---
Anes-Prog Note L&D Date/Time: 09/06/22 07:48 Comfortable throughout: section Neuraxial method: spinal Epidural/Spinal procedure site: clean & non-tender Neuro status: Neuro function grossly intact. Cardiovascular status: normal Respiratory status: normal Airway patency: baseline Mental status: baseline Post-Op hydration status: normal Vital Signs: Last Vital Signs Temp 36.9 C 09/06/22 05:00 Pulse 84 09/06/22 05:00 Resp 16 09/06/22 05:00 BP 129/70 09/06/22 05:00 Pulse Ox 100 09/06/22 05:00 O2 Del Method Room Air 09/06/22 05:00 Pain score (VAS): 1 I/O: Intake & Output 09/05/22 09/05/22 09/06/22 15:59 23:59 07:59 Intake Total 1500 1540 1000 Output Total 1585 1700 2300 Balance -85 -160 -1300 Patient feedback: Patient satisfied with anesthetic care.
--- NOTE | 2022-09-06 07:49 | WPDANLDNPN2 ---
Anes-Prog Note L&D-Neuraxial Date/Time: 09/06/22 07:49 Neuraxial medications: intrathecal PF morphine Opiod-related complaints: none Patient feedback: Patient satisfied with post-operative pain management.
[2022-09-06 08:00] VITALS: BP 123/80; PULSE 92; RESP 16; TEMP 37; O2SAT 99
[2022-09-06] MEDS: IBUPROFEN 600 MG TABLET PO ×3 (09:38→22:25)
[2022-09-06] MEDS: MULTIVIT/MIN/PREN/FOL AC/IRON TABLET 1 TAB PO (09:39)
[2022-09-06] MEDS: SIMETHICONE 80 MG TAB.CHEW PO ×2 (09:39→16:34)
[2022-09-06] MEDS: POLYSACCHARIDE IRON COMPLEX 150 MG CAPSULE PO ×2 (09:39→16:34)
[2022-09-06] MEDS: HYDROcodone/acetaminophen (*CRX) 10-325 MG TABLET 1 TAB PO ×2 (09:39→16:33)
[2022-09-06] MEDS: DOCUSATE SODIUM 100 MG CAPSULE PO ×2 (09:40→16:34)
[2022-09-06 10:21] VITALS: PULSE 92; RESP 16; O2SAT 99
--- NOTE | 2022-09-06 10:30 | PC.NURSE ---
PT left unit via wheelchair accompanied by her mother and taken to waiting car. PT on pass to [facility]
--- NOTE | 2022-09-06 16:30 | PC.NURSE ---
PT returned from [facility] and was received on unit via wheelchair accompanied by her mother. PT back in bed and talkative about the in [facility].
[2022-09-06] MEDS: LIDOCAINE 5% PATCH 1 PATCH TRANSDERM (16:43)
[2022-09-06 19:45] VITALS: BP 132/69; PULSE 109; RESP 16; TEMP 37; O2SAT 99
[2022-09-07] MEDS: IBUPROFEN 600 MG TABLET PO ×2 (04:27→13:41)
[2022-09-07] MEDS: HYDROcodone/acetaminophen (*CRX) 5-325 MG TABLET 1 TAB PO ×3 (04:28→13:42)
[2022-09-07 08:25] VITALS: BP 129/77; PULSE 99; RESP 18; TEMP 36.7; O2SAT 100
[2022-09-07] MEDS: DOCUSATE SODIUM 100 MG CAPSULE PO (09:53)
[2022-09-07] MEDS: POLYSACCHARIDE IRON COMPLEX 150 MG CAPSULE PO (09:53)
[2022-09-07] MEDS: MULTIVIT/MIN/PREN/FOL AC/IRON TABLET 1 TAB PO (09:54)
--- NOTE | 2022-09-07 11:46 | P.DS_ITS ---
DS: Admitting Diagnosis Discharge Date 09/07/22 Admitting Diagnosis h/o fundal myomectomy encounter for primary low transverse section DS: Discharge Diagnosis Discharge Diagnosis (1) S/P section: Code(s): Z98.891 - History of uterine scar from previous surgery Status: Acute OB - DS: Summary OB Procedures : Ultrasound OB Procedures Intrapartum: low cervical, transverse OB Procedures: : None Peripartum Data Delivery Method: Section Procedures: Procedures Operation Date: 09/05/22 07:30 Actual Procedure Side Surgeon p Section Tona Castillo MD complications: none [place]: Gender: Male Disposition of : NICU Status at Discharge Functional status at discharge: independent ambulation Overall status at discharge: patient is back to baseline Time Spent with Patient Time attestation: Total time spent providing and/or coordinating discharge services: Time spent: Less than 30 minutes Exam Const: General: cooperative, healthy appearing, comfortable and no acute distress Orientation/consciousness: patient oriented x3 Resp: Effort & Inspection: normal respiratory effort Auscultation: clear to auscultation bilaterally Cardio: Rate: regular rate GI: Inspection: non-distended and incision (covered with clean dressing) GI Palp: No abdominal tenderness and Yes Soft to palpation Auscultation: normal bowel sounds : Other: fundus firm Skin: General skin exam: normal color Neuro: General: patient oriented x3 Extrem: General: normal to inspection Psych: Appearance: grossly normal Affect: normal affect Attitude: cooperative Discharge Plan Discharge Attending physician on discharge: Tona Castillo Discharging Clinician: Tona Castillo Anticipated Discharge Date/Time: 09/07/22 11:00 Patient Disposition: Home, Self-Care Activity: may shower, no straining, may drive after 2 weeks and pelvic rest Diet: regular Discharge Instructions: remove dressing if the sponge gets wet, or by 09/11/22 no heavy lifting >15lbs for 6 weeks Patient Instructions: Antibiotic Form Stand Alone Forms: General Discharge Information Follow-up/Referrals: Tona Castillo MD [Physician] - 4 Weeks Discharge Medications: New acetaminophen [Mapap (acetaminophen)] 325 mg Tablet 650 mg PO Q6H PRN (Reason: Mild Pain (1-3)) Qty: 60 0RF docusate sodium 100 mg Capsule 100 mg PO BID Qty: 60 0RF polysaccharide iron complex 150 mg iron Capsule 150 mg PO DAILY Qty: 90 0RF ibuprofen 600 mg Tablet 600 mg PO Q6H PRN (Reason: Cramping) Qty: 40 0RF hydrocodone-acetaminophen 5-325 mg Tablet 1 tablet PO Q3H PRN (Reason: Moderate Pain (4-6)) Qty: 30 0RF Continued fluocinolone and shower cap 0.01 % oil 1 ea topical MONTHLY prenat.vits,sho,[id number] Tablet 1 tablet PO DAILY Date of admission: 09/05/22 05:27 Primary Care Provider: PHYSICIAN,MANAGER [employer] Admitting Provider: Tona Castillo Attending physician on admission: Tona Castillo Condition: Stable
--- NOTE | 2022-09-07 14:01 | PC.NURSE ---
1300-Per Dr. Castillo, a follow-up appointment is not necessary; baby was transferred to [facility].
--- NOTE | 2022-09-07 16:59 | PC.NURSE ---
[id number] Patient requested consult for questions. Reviewed milk production and how to protect her milk supply. [id number] Instructions given on cleaning, care, usage, that there should be no pain, pumping schedule for milk production, collection, and storage of human milk. Patient was assessed for correct placement, flange size, to pump for comfort and nipple stretching/stimulation for adequate milk production every 3 hours (8 times in 24 hours) 1-2 times at night. Mother voiced understanding of the education shared along with mom and baby guide for additional resource information. Reported to the primary RN.
== END 2022-09-07 13:55 | disposition home or self-care (01) | DRG 788 ==
LOC: ANHLDR 05:32 → ANHOB2 11:21
PROVIDERS: Admitting Provider Obstetrics & Gynecology; Visit Provider Obstetrics & Gynecology
PROC: 10D00Z1 Extraction of Products of Conception, Low, Open Approach (ICD-10-PCS; CPT 59514; principal; 2022-09-05 07:30)
DX: O34.219 Maternal care for unspecified type scar from previous cesarean delivery (principal); Z3A.37 37 weeks gestation of pregnancy; Z37.0 Single live birth
CPT/HCPCS: 36415; 85025; 85027; 86592; 86850; 86900; 86901; A9270; J0690; J1885; J2274; J2370; J2405; J2590; J7120

== ENCOUNTER 2023-01-13 11:07 | Emergency (ER) | payer OTHER, SELFPAY ==
--- NOTE | 2023-01-13 11:13 | ED.URI ---
HPI - URI/Sore Throat General Chief Complaint: Upper Respiratory Infection Stated Complaint: Sore Throat Time Seen by Provider: 01/13/23 11:14 History of Present Illness HPI Narrative: 27-year-old female presented for complaint of sore throat for about 1 week. Endorses painful swallow and throat feels achy with mild nasal congestion and runny nose. She denies cough, shortness of breath, wheezing, nausea, vomiting, fevers or chills. She is taking Tylenol and antihistamines without significant improvement. Denies known sick contacts. Related Data Home Medications Medication Instructions Recorded Confirmed fluocinolone 0.01 % scalp oil and 1 ea topical MONTHLY 02/15/22 01/13/23 shower cap prenat.vits,sho,ufg-mucn-shzbe 1 tablet PO DAILY 03/15/22 01/13/23 levonorgestrel 21 mcg/24 hours (8 See Rx Instructions .Route .COMPLEX 01/13/23 01/13/23 yrs) 52 mg intrauterine device (Mirena) Allergies Allergy/AdvReac Type Severity Reaction Status Date / Time amoxicillin [From Augmentin] AdvReac Mild Hives Verified 01/13/23 11:08 clavulanic acid AdvReac Mild Hives Verified 01/13/23 11:08 [From Augmentin] Penicillins AdvReac Mild Hives Verified 01/13/23 11:08 Review of Systems Review of Systems: CONSTITUTIONAL: Denies body aches, fever, chills, or sweats. EYES: Denies visual changes, redness, or discharge. ENT: Reports rhinorrhea, congestion, sore throat denies otalgia. CARDIOVASCULAR: Denies chest pain, palpitations, or edema. RESPIRATORY: Denies dyspnea. GASTROINTESTINAL: Denies abdominal pain, nausea, vomiting, or diarrhea. SKIN: Denies rash, itching, or wounds. MUSCULOSKELETAL: Denies back pain, joint pain, or myalgia. NEUROLOGIC: Denies headache PMFSH Past Medical History Medical History Encounter for IUD insertion insertion 11/06/2022 Endometriosis determined by laparoscopy Patient denies significant medical history Suppression of menses Surgical History Surgical History H/O myomectomy 09/2021 S/P laparoscopy 05/2021 for left ovarian torsion Family History Family History Grandparent Breast cancer Sibling Diabetes mellitus Mother Hypertension Social History Social History Smoking status: Never smoker Alcohol intake: never Substance use: never Substance use type: does not use Lack of Transportation: No Lack of Food: Never True Current Housing: I Have Housing Concerned About Future Housing: No Difficulty Paying Gas/Electric Bills: No Difficulty Paying for Meds: No Currently Unemployed: No Education: Bachelor's Degree Difficulty w/ Childcare or Family Care: No Living arrangements: with family 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 EYES: conjunctivae clear ENT: Mucous membranes moist. TM pearly alcantar with normal light reflex bilaterally; no tragal tenderness. Oropharynx mildly erythematous without lesions, tonsillar enlargement or exudate. No drooling, no hoarseness, no trismus, uvula midline. No tripod positioning, hot potato voice, or soft palate swelling. NECK: Supple. No lymphadenopathy CHEST: Clear to auscultation, breath sounds equal. No respiratory distress, speaks in full sentences. HEART: Regular rate and rhythm. No murmur heard. SKIN: Warm, dry, no rash. NEURO: Alert and oriented x3. Course Course Emergency Course: Patient is aware of diagnosis, understands and agrees to treatment plan. Anticipatory guidance given. Patient agrees to
[2023-01-13 11:16] VITALS: BP 109/68; PULSE 81; RESP 16; TEMP 36.6; O2SAT 100
== END 2023-01-13 11:33 | disposition home or self-care (01) ==
PROVIDERS: Emergency Provider Nurse Practitioner Family
DX: J02.0 Streptococcal pharyngitis (principal)
CPT/HCPCS: 87880; 99213; G0463

== ENCOUNTER 2023-02-14 14:47 | Emergency (ER) | payer OTHER, SELFPAY ==
[2023-02-14 14:55] VITALS: BP 98/83; PULSE 91; RESP 18; TEMP 37; O2SAT 100
--- NOTE | 2023-02-14 15:05 | ED.URI ---
HPI - URI/Sore Throat General Chief Complaint: Upper Respiratory Infection Stated Complaint: Sore Throat Time Seen by Provider: 02/14/23 15:05 Source: patient, RN notes reviewed and old records reviewed Mode of arrival: ambulatory Limitations: no limitations History of Present Illness HPI Narrative: 28-year-old female who presents to [facility] with sore throat the past 3 days which is worse with swallowing.Patient reports that she was seen about a month ago and had strep and waited about a week before she came in and thought she would not wait like last time. Patient reports no cough or feelings of congestion, no known fevers, chills or sweats. Patient is breast feeding. MD elicited complaint: cough and sore throat Onset (ago): day(s) (3) Pain scale (0-10): 7 Treatments prior to arrival: none Related Data Home Medications Medication Instructions Recorded Confirmed fluocinolone 0.01 % scalp oil and 1 ea topical MONTHLY 02/15/22 02/14/23 shower cap levonorgestrel 21 mcg/24 hours (8 See Rx Instructions .Route .COMPLEX 01/13/23 02/14/23 yrs) 52 mg intrauterine device (Mirena) Allergies Allergy/AdvReac Type Severity Reaction Status Date / Time amoxicillin [From Augmentin] AdvReac Mild Hives Verified 02/14/23 15:00 clavulanic acid AdvReac Mild Hives Verified 02/14/23 15:00 [From Augmentin] Penicillins AdvReac Mild Hives Verified 02/14/23 15:00 Review of Systems Review of Systems: CONSTITUTIONAL: Denies malaise, chills, sweats, or fever. EYES: Denies visual changes, redness, or discharge. ENT: Reports some rhinorrhea, congestion,no sinus pain,no otalgia and positive for sore throat. CARDIOVASCULAR: Denies chest pain, palpitations, or edema. RESPIRATORY: Reports cough.? Denies dyspnea. GASTROINTESTINAL: Denies abdominal pain, nausea, vomiting, diarrhea SKIN: Denies rash or itching. MUSCULOSKELETAL: Denies myalgia. NEUROLOGIC: Denies headache. All systems reviewed & are unremarkable except as noted in HPI and below PMFSH Past Medical History Medical History Encounter for IUD insertion insertion 11/06/2022 Endometriosis determined by laparoscopy Patient denies significant medical history Suppression of menses Surgical History Surgical History H/O myomectomy 09/2021 S/P laparoscopy 05/2021 for left ovarian torsion Family History Family History Grandparent Breast cancer Sibling Diabetes mellitus Mother Hypertension Social History Social History Smoking status: Never smoker Alcohol intake: never Substance use: never Substance use type: does not use Lack of Transportation: No Lack of Food: Never True Current Housing: I Have Housing Concerned About Future Housing: No Difficulty Paying Gas/Electric Bills: No Difficulty Paying for Meds: No Currently Unemployed: No Education: Bachelor's Degree Difficulty w/ Childcare or Family Care: No Living arrangements: with family 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 There is no relevant family history pertinent to the presenting complaint Exam Narrative: GENERAL: Well-appearing, well-nourished, and in no acute distress. HEAD: Normocephalic EYES: PERRLA, conjunctivae clear ENT: Nares clear, turbinates edematous and erythematous, clear discharge. Mucous membranes moist. TM pearly alcantar with dull light reflex bilaterally; no tragal tenderness. Oropharynx erythematous w
== END 2023-02-14 15:31 | disposition home or self-care (01) ==
PROVIDERS: Emergency Provider Registered Nurse
DX: J02.9 Acute pharyngitis, unspecified (principal); N80.9 Endometriosis, unspecified
CPT/HCPCS: 87081; 87880; 99213; G0463

== ENCOUNTER 2023-12-09 12:26 | Emergency (ER) | payer OTHER, SELFPAY ==
[2023-12-09 12:56] VITALS: BP 120/71; PULSE 100; RESP 18; TEMP 36.9; O2SAT 100
--- NOTE | 2023-12-09 13:03 | ED.URI ---
HPI - URI/Sore Throat General Chief Complaint: Headache Stated Complaint: Headache Time Seen by Provider: 12/09/23 13:05 Source: patient and RN notes reviewed Mode of arrival: ambulatory Limitations: no limitations History of Present Illness HPI Narrative: 28 y/o female presented for c/o headache since 1100 yesterday. Pain is all over the head, rates 3/10 at rest up to 8/10 with walking. Denies any sensitivity to light or noise, denies any associated symptoms. Took Tylenol yesterday without much improvement and took Excedrin today with some improvement. Related Data Home Medications Medication Instructions Recorded Confirmed levonorgestrel 21 mcg/24 hr (up to See Rx Instructions .Route .COMPLEX 01/13/23 12/09/23 8 years) 52 mg intrauterine device (Mirena) Allergies Allergy/AdvReac Type Severity Reaction Status Date / Time amoxicillin [From Augmentin] AdvReac Mild Hives Verified 12/09/23 12:54 clavulanic acid AdvReac Mild Hives Verified 12/09/23 12:54 [From Augmentin] Penicillins AdvReac Mild Hives Verified 12/09/23 12:54 Review of Systems Review of Systems: CONSTITUTIONAL: Denies body aches, fever, chills, or sweats. EYES: Denies visual changes, photophobia, redness, or discharge. ENT: Denies rhinorrhea, congestion, sore throat, or otalgia. CARDIOVASCULAR: Denies chest pain, palpitations, or edema. RESPIRATORY: Denies cough or dyspnea. GASTROINTESTINAL: Denies abdominal pain, nausea, vomiting, or diarrhea. SKIN: Denies rash, itching, or wounds. MUSCULOSKELETAL: Denies back pain, joint pain, or myalgia. NEUROLOGIC: Endorses headache, denies numbness, tingling, or weakness, dizziness All systems reviewed & are unremarkable except as noted in HPI and below PMFSH Past Medical History Medical History Encounter for IUD insertion insertion 11/06/2022 Endometriosis determined by laparoscopy Patient denies significant medical history Suppression of menses Surgical History Surgical History H/O myomectomy 09/2021 S/P laparoscopy 05/2021 for left ovarian torsion Family History Family History Grandparent Breast cancer Sibling Diabetes mellitus Mother Hypertension Social History Social History Smoking status: Never smoker Alcohol intake: never Substance use: never Substance use type: does not use Lack of Transportation: No Lack of Food: Never True Current Housing: I Have Housing Concerned About Future Housing: No Difficulty Paying Gas/Electric Bills: No Difficulty Paying for Meds: No Currently Unemployed: No Education: Bachelor's Degree Difficulty w/ Childcare or Family Care: No Living arrangements: with family 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 Please see nursing chart for further information. There is no relevant family history pertinent to the presenting complaint Exam Narrative: GENERAL: Well-appearing, well-nourished HEAD: Normocephalic, atraumatic. EYES: PERRLA, EOMI. ENT: Mucous membranes pink and moist. No rhinorrhea. TMs normal bilaterally. NECK: Normal AROM. Supple. No lymphadenopathy. CHEST: No respiratory distress. Clear to auscultation. HEART: Regular rate and rhythm. No murmur appreciated. Normal peripheral pulses. ABDOMEN: Soft, nontender, nondistended, normal active bowel sounds. SKIN: Warm, dry, no rash. Capillary refill normal. Normal skin turgor.
== END 2023-12-09 13:30 | disposition home or self-care (01) ==
PROVIDERS: Emergency Provider Nurse Practitioner Family; PCP Family Medicine
DX: R51.9 Headache, unspecified (principal); Z20.822 Contact with and (suspected) exposure to COVID-19; N80.9 Endometriosis, unspecified
CPT/HCPCS: 87426; 99213; G0463

== ENCOUNTER 2023-12-09 17:35 | Emergency (ER) | payer OTHER, SELFPAY ==
--- NOTE | ~2023-12-09 | CT_ITS ---
EXAMINATION: CT brain wo con DATE: 12/09/2023 19:43 INDICATION: New onset headache TECHNIQUE: Computed tomography (CT) of the head was performed without intravenous contrast. Sagittal and coronal reconstructions were performed. The mA was adjusted according to patient size. Iterative reconstruction technique was employed. The dose-length product was 605.33 mGy-cm. COMPARISON: None FINDINGS: No acute intracranial hemorrhage, acute infarction or abnormal extra axial fluid collection. Ventricl es are normal and symmetric. No mass/mass effect. The orbits, paranasal sinuses and mastoid air cells are normal. IMPRESSION: 1. Normal head CT. Reviewed, dictated and finalized at location A. IMPRESSION: 1. Normal head CT.
[2023-12-09 18:05] VITALS: BP 121/75; PULSE 116; TEMP 37.1; O2SAT 100
--- NOTE | 2023-12-09 18:17 | ED.HA ---
HPI - Headache General Chief Complaint: Headache <Lorenzo Jalloh PA-C - Last Filed: 12/09/23 18:20> Stated Complaint: headache <Lorenzo Jalloh PA-C - Last Filed: 12/09/23 18:20> Time Seen by Provider: 12/09/23 18:16 <Lorenzo Jalloh PA-C - Last Filed: 12/09/23 18:20> Focused HPI: this is a 28-year-old female who presents to the ED for chief complaint of headache times 36 hours. Patient reports that headache was gradual in onset and started while getting ready for a constitution party the day before. She states that she started to have some occipital headache that radiates superiorly on both sides. Patient states that she has had headaches in the past but nothing like this before. She tried taking a couple of rounds of ibuprofen and Excedrin migraine which had temper relief but she feels that her pain continues to worsen. States that it also seems worse with changing positions and moving. Denies recent illness. States her COVID swab was negative at urgent care. She states she had a fever of 100.4 yesterday. Endorses nausea as well. Denies numbness, weakness, vision loss or vision change, vomiting. GENERAL: Well-appearing, well-nourished, and in no acute distress. HEAD: Normocephalic, atraumatic. CHEST: Clear to auscultation. No respiratory distress. HEART: Regular rate and rhythm. NEURO: Alert and oriented x3. Patient screened in triage and initial orders placed. Additional care and disposition to be based upon diagnostic testing and treatment. <Lorenzo Jalloh PA-C - Last Filed: 12/09/23 18:20> Focused HPI: this is a 28-year-old female who presents to the ED for chief complaint of headache times 36 hours. Patient reports that headache was gradual in onset and started while getting ready for a constitution party the day before. She states that she started to have some occipital headache that radiates superiorly on both sides. Patient states that she has had headaches in the past but nothing like this before. She tried taking a couple of rounds of ibuprofen and Excedrin migraine which had temper relief but she feels that her pain continues to worsen. States that it also seems worse with changing positions and moving. Denies recent illness. States her COVID swab was negative at urgent care. She states she had a fever of 100.4 yesterday. Endorses nausea as well. Denies numbness, weakness, vision loss or vision change, vomiting. Patient has a toddler at home who goes to daycare. GENERAL: Well-appearing, well-nourished, and in no acute distress. HEAD: Normocephalic, atraumatic. CHEST: Clear to auscultation. No respiratory distress. HEART: Regular rate and rhythm. NEURO: Alert and oriented x3. Patient screened in triage and initial orders placed. Additional care and disposition to be based upon diagnostic testing and treatment. <Kristian Conn MD - Last Filed: 12/09/23 21:40> Related Data Home Medications: Home Medications Medication Instructions Recorded Confirmed levonorgestrel 21 mcg/24 hr (up to See Rx Instructions .Route .COMPLEX 01/13/23 12/09/23 8 years) 52 mg intrauterine device (Mirena) <Lorenzo Jalloh PA-C - Last Filed: 12/09/23 18:20> Allergies/Adverse Reactions: Allergies Allergy/AdvReac Type Severity Reaction Status Date / Time amoxicillin [From Augmentin] AdvReac Mild Hives Verified 12/09/23 12:54 clavulanic acid AdvReac Mild Hives Verified 12/09/23 12:54 [From Augmentin] Penicillins AdvReac Mild Hives Verified 12/09/23 12:54 <Lorenzo Jalloh PA-C - Last Filed: 12/09/23 18:20> PMFSH Past Medical History Medical History: Medical History Encounter for IUD insertion insertion 11/06/2022 Endometriosis determined by laparoscopy Patient denies significant medical history Suppression of menses <Lorenzo Jalloh PA-C - Last Filed: 12/09/23 18:20> Surgical History Surgical History: Surgical H
[2023-12-09 18:29] LABS: BEDSIDEPREGUCG Negative
[2023-12-09 18:33] LABS: Basophils Percent Auto 0.1 % (0.2-1.2); Hematocrit 38.9 % (37.0-47.0); Hemoglobin 13.5 g/dL (12.0-15.0); Immature Granulocyte Absolute 0.02 K/mm3 (0.00-0.031); Immature Granulocyte Percent A 0.3 % (0-0.5); Lymphocytes Absolute Auto 1.39 K/mm3 (0.9-3.2); Lymphocytes Percent Auto 19.4 % (18.3-44.2); Mean Corpuscular HGB Conc 34.7 g/dl (32-36); Mean Corpuscular Hemoglobin 31.8 pg (26-34); Mean Corpuscular Volume 91.7 fl (80-100); Mean Platelet Volume 9.8 fl (7.4-10.4); Monocytes Absolute Auto 0.5 K/mm3 (0.1-0.6); Monocytes Percent Auto 7.1 % (2.6-8.5); Neutrophils Absolute Auto 5.3 K/mm3 (1.3-6.7); Neutrophils Percent Auto 73.1 % (45.5-73.1); Platelet Count Result 239 k/mm3 (150-375); Red Blood Count 4.24 M/mm3 (4.2-5.4); Red Cell Distribution Width 11.9 % (11.5-14.5); White Blood Count 7.2 K/mm3 (4.5-10.0)
[2023-12-09 18:43] LABS: Alanine Aminotransferase 14 U/L (6-35); Albumin Level 4.8 g/dL (3.5-5.1); Alkaline Phosphatase 45 U/L (38-126); Anion Gap 12 mmol/L (4-12); Aspartate Amino Transferase 23 U/L (14-36); Bilirubin,Total 0.5 mg/dL (0.2-1.3); Blood Urea Nitrogen 11 mg/dL (7-17); Calcium 9.1 mg/dL (8.4-10.2); Carbon Dioxide 27 mmol/L (22-30); Chloride 99 mmol/L (98-107); Estimated CRCL calculation 113 ml/min; Estimated Glomerular Filt Rate > 60; Glucose 135 mg/dL (65-110); Potassium 3.6 mmol/L (3.4-5.0); Sodium 138 mmol/L (137-145)
[2023-12-09 19:23] VITALS: TEMP 37.8
[2023-12-09] MEDS: diphenhydrAMINE HCl INJ 50 MG/ML VIAL 25 MG IV PUSH (19:54)
[2023-12-09] MEDS: SODIUM CHLORIDE 0.9% IV 1,000 ML 999 ML IV CONT ×2 (19:54→20:13)
[2023-12-09] MEDS: METOCLOPRAMIDE HCL INJ 10 MG/2 ML VIAL IV PUSH (19:55)
[2023-12-09 20:29] LABS: Influenza A QL RT-PCR Negative (Negative); Influenza B QL RT-PCR Negative (Negative); RSV RNA, RT-PCR Negative (Negative); SARS-CoV-2 RNA PCR Negative (Negative)
[2023-12-09] MEDS: ACETAMINOPHEN 500 MG TABLET 1000 MG PO (21:03)
[2023-12-09] MEDS: KETOROLAC 15 MG/ML VIAL (*BKC) IV PUSH (21:03)
[2023-12-09 21:08] VITALS: BP 114/62; PULSE 88; RESP 15; O2SAT 100
== END 2023-12-09 21:53 | disposition home or self-care (01) ==
PROVIDERS: Physician Assistant; Emergency Provider Emergency Medicine; PCP Family Medicine
DX: B34.9 Viral infection, unspecified (principal); R51.9 Headache, unspecified; Z20.822 Contact with and (suspected) exposure to COVID-19; Z97.5 Presence of (intrauterine) contraceptive device
CPT/HCPCS: 36415; 70450; 80053; 81025; 85025; 87426; 87637; 96361; 96374; 96375; 99284; A9270; J1200; J1885; J2765; J7030

== ENCOUNTER 2025-01-26 12:21 | Day surgery (SDC) | payer OTHER, SELFPAY ==
[2025-01-26] VITALS (15 sets, daily range): BP systolic 101–129; BP diastolic 48–69; PULSE 68–94; RESP 13–20; TEMP 36.3–36.6; O2SAT 100
--- NOTE | ~2025-01-26 | US_ITS ---
EXAMINATION: US OB <=14 wk fetus w TV DATE: 01/26/2025 13:40 INDICATION: Left lower quadrant abdominal pain with concern for recurrent left ovarian torsion during first trimester . TECHNIQUE: Real-time pelvic ultrasound utilizing both a transvaginal and transabdominal probe was performed. The interpreting radiologist was not present for the study. COMPARISON: None. FINDINGS: The uterus measures 13.0 x 7.7 x 9.2 cm. There is an intrauterine gestational sac. A yolk sac and pole are identified. The crown rump length measures 5.7 cm, which is concordant within 3 days of the previously estimated gestational age of 11 weeks and 6 days based upon outside institution ultrasound performed on 01/08/2025. heart motion is identified measuring 167 beats per minute (bpm) by M-mode Doppler. The right ovary measures 4.5 x 2.2 x 1.8 cm. The left ovary measures 6.4 x 5.8 x 4.0 cm. Vascular flow is seen on color Doppler in the right ovary but not in the left ovary consistent with left ovarian torsion. There is small amount of anechoic free fluid at the left adnexa. IMPRESSION: 1. Single living fetus with heart rate of 167 bpm. 2. New [place]-rump length of 5.7 cm which is concordant within 3 days of the previously estimated gestational age by ultrasound of 11 weeks 6 day(s) with ultrasound estimated date of delivery (DEYANIRA) of 08/11/2025. 3. Small amount of fluid along side the left ovary which is enlarged with no internal vascular flow on color Doppler consistent with left ovarian torsion. Recommend UROLOGIST consultation. Dr. Moscoso discussed these findings with Dr. Claudy Milan at 1:40 PM. Reviewed, dictated and finalized at location A. IMPRESSION: 1. Single living fetus with heart rate of 167 bpm. 2. New [place]-rump length of 5.7 cm which is concordant within 3 days of the previou sly estimated gestational age by ultrasound of 11 weeks 6 day(s) with ultrasoun d estimated date of delivery (DEYANIRA) of 08/11/2025. 3. Small amount of fluid along side the left ovary which is enlarged with no in ternal vascular flow on color Doppler consistent with left ovarian torsion. Rec ommend UROLOGIST consultation. Dr. Moscoso discussed these findings with Dr. Claudy Milan at 1:40 PM.
[2025-01-26 12:48] LABS: Hematocrit 36.0 % (37.0-47.0); Hemoglobin 12.6 g/dL (12.0-15.0); Immature Granulocyte Percent A 0.3 % (0-0.5); Lymphocytes Absolute Auto 1.88 K/mm3 (0.9-3.2); Mean Corpuscular HGB Conc 35.0 g/dl (32-36); Mean Corpuscular Hemoglobin 31.5 pg (26-34); Mean Corpuscular Volume 90.0 fl (80-100); Nucleated Red Blood Cells Absolute Auto 0.000 K/mm3 (0.0-0.012); Nucleated Red Blood Cells Perc 0.0 % (0.0-0.2); Platelet Count Result 226 k/mm3 (150-375); Red Blood Count 4.00 M/mm3 (4.2-5.4); White Blood Count 7.1 K/mm3 (4.5-10.0)
[2025-01-26 13:07] LABS: Alanine Aminotransferase 17 U/L (6-35); Albumin Level 4.3 g/dL (3.5-5.1); Alkaline Phosphatase 49 U/L (38-126); Anion Gap 12 mmol/L (4-12); Aspartate Amino Transferase 21 U/L (14-36); Bilirubin,Total 0.6 mg/dL (0.2-1.3); Blood Urea Nitrogen 8 mg/dL (7-17); Calcium 8.8 mg/dL (8.4-10.2); Carbon Dioxide 18 mmol/L (22-30); Chloride 103 mmol/L (98-107); Estimated CRCL calculation 179 ml/min; Estimated Glomerular Filt Rate > 60; Glucose 110 mg/dL (65-110); Lipase 72 U/L (23-300); Potassium 3.1 mmol/L (3.4-5.0); Sodium 133 mmol/L (137-145); Total Protein 7.4 g/dL (6.3-8.2)
--- NOTE | 2025-01-26 13:41 | ED.ABDPAIN ---
HPI - Abdominal Pain General Chief Complaint: Abdominal Pain Stated Complaint: 12 weeks preg, LLQ abd pain Time Seen by Provider: 01/26/25 12:48 Source: patient and RN notes reviewed Mode of arrival: ambulatory Limitations: no limitations History of Present Illness HPI narrative: 30-year-old female presents to the ER complaining of left lower abdominal pain since this morning. Proximally 4 hours ago patient said she developed left lower abdominal pain that was intermittent subsided min approximately 2 hours ago she developed worsening abdominal pain there is remaining constant to her left lower abdomen. Patient reports intermittent nausea with severe pain otherwise no vomiting, no diarrhea. Patient has any fevers, urinary symptoms, chest pain, difficulty breathing, vaginal bleeding or vaginal discharge coming other symptoms. Patient is approximately 12 weeks , she has recently had an ultrasound that showed fetus present in the uterus, no evidence of ectopic previously. Patient also says she has a history of recurrent or ovarian torsion is, she has had a myectomy in the past, no history of a hysterectomy. Related Data Home Medications ?Medication ?Instructions ?Recorded ?Confirmed ?Last Taken ?Type ketoconazole 2 % shampoo 1 applic topical 2XW 12/30/23 12/28/24 Unknown History vits no.126-ferrous fum tablet PO 12/28/24 12/28/24 Unknown History 28 mg iron-folic acid 800 mcg tablet (Classic ) Allergies Allergy/AdvReac Type Severity Reaction Status Date / Time amoxicillin (From Augmentin) AdvReac Mild Hives Verified 01/26/25 14:29 clavulanic acid (From AdvReac Mild Hives Verified 01/26/25 14:29 Augmentin) Penicillins AdvReac Mild Hives Verified 01/26/25 14:29 Review of Systems Review of Systems: CONSTITUTIONAL: Denies fever, chills, or sweats. EYES: Denies visual changes, redness, or discharge. ENT: Denies rhinorrhea, congestion, sore throat, or otalgia. CARDIOVASCULAR: Denies chest pain, palpitations, or edema. RESPIRATORY: Denies cough or dyspnea. GASTROINTESTINAL: Positive for abdominal pain, nausea, vomiting. Negative for diarrhea. GENITOURINARY: Denies dysuria, vaginal bleeding, vaginal discharge, or hematuria. SKIN: Denies rash or itching. MUSCULOSKELETAL: Denies back pain, joint pain, or myalgia. NEUROLOGIC: Denies headache, numbness, or weakness. PSYCHIATRIC: Denies anxiety or depression. All other systems reviewed are negative, except as documented in HPI. [facility] Past Medical History Medical History (Updated 01/27/25 @ 00:01 by Carla Rajan) 12 weeks currently Endometriosis determined by laparoscopy Surgical History Surgical History (Updated 01/27/25 @ 07:39 by Amy Orona, [facility]) History of left salpingo-oophorectomy (01/26/25) left ovarian torsion H/O myomectomy 09/2021 S/P laparoscopy 05/2021 for left ovarian torsion Family History Family History Grandparent Breast cancer Sibling Diabetes mellitus Mother Hypertension Social History Social History Smoking status: Never smoker Second hand tobacco smoke exposure: No Alcohol intake: never Substance use: never Substance use type: does not use Do You Feel Safe in your Home?: Yes Lack of Transportation: No Lack of Food: Never True Current Housing: I Have Housing Concerned About Future Housing: No Difficulty Paying Gas/Electric Bills: No Difficulty Paying for Meds: No Currently Unemployed: No Education: Bachelor's Degree Difficulty w/ Childcare or Family Care: No Living arrangements: with family Additional living arrangements comments: 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 There is no relevant family history pertinent to the patient complaint. Exam Narrative: GENERAL: This is a well-nourished, well-developed adult, in no apparent distress. They are non ill-appearing, nontoxic appearing. Patient appears to be uncomfortable. HEAD: normocephalic, atraumatic. EYES: Sclera clear/white. Conjunctiva normal. Vision is grossly intact. Extraocular movements intact EARS: External ears normal, Hearing grossly intact. NOSE: External nose normal THROAT: Mucous membranes moist, NECK: Neck supple, CARDIOVASCULAR: Regular rate and rhythm without murmurs, gallops, or rubs. RESPIRATORY: Clear to auscultation. Breath sounds equal bilaterally. No wheezes, rales, or rhonchi. GASTROINTESTINAL: Abdomen soft, lower abdomen tender throughout, left worse than right, nondistended. Bowel sounds are active. No hepato-splenomegaly, or palpable masses. No guarding or rigidity. SKIN: warm, Dry, intact with no suspicious lesions or rash, good texture and turgor. NEURO: awake, alert, and oriented to person, place and time. There were no obvious focal neurologic abnormalities. EXTREMITIES: No joint tenderness, effusion, or edema noted. Course Course Emergency Course: Portions of this record may have been created with voice recognition software Vital Signs Vital signs: Vital Signs Temperature 97.3 F L 01/26/25 12:23 Pulse Rate 92 01/26/25 12:23 Respiratory Rate 16 01/26/25 12:23 Blood Pressure 129/69 01/26/25 12:23 Pulse Oximetry 100 01/26/25 12:23 Oxygen Delivery Room Air 01/26/25 12:23 Temperature 97.3 F L 01/26/25 16:18 Pulse Rate 94 01/26/25 18:40 Respiratory Rate 18 01/26/25 18:40 Blood Pressure 117/58 L 01/26/25 18:40 Pulse Oximetry 100 01/26/25 17:30 Oxygen Delivery Room Air 01/26/25 18:40 Oxygen Flow Rate 8 01/26/25 16:30 Reviewed MDM - Abdominal Pain MDM Narrative Medical decision making narrative: Will obtain pelvic ultrasound obtain to rule out torsion. Radiology called to notify provider that patient likely has a left-sided ovarian torsion. Patient's vomiting, patient given IV fluids and Zofran. Lab work reveals CBC grossly unremarkable, no anemia, normal hemoglobin, slightly decreased hematocrit 36%. Chemistry with slightly decreased sodium 133, potassium 3.1, mild hypokalemia, mild acidosis, bicarb approximately 18. Anion gap normal. Will replete for mild hypokalemia with IV potassium. heart sounds obtained of normal, ultrasound also shows a single living fetus without complication. Patient is in severe pain gave her a small dose of hydromorphone to help with pain control. Called and spoke with the on-call OBGYN Dr. Ellington who is also currently following her discussed the case with any believes likely she is having another torsion and wants to take her to the OR. Patient advised to remain NPO at this time. She has ate or drank anything since 09am this morning. Differential Diagnosis Differential diagnosis: Likely other (Miscarriage, ovarian torsion, ovarian cyst, diverticulitis) Lab Data Attestation: I reviewed the patient's lab results. 01/26/25 12:43 01/26/25 12:43 Labs: Lab Results 01/26/25 Range/Units 12:43 WBC 7.1 (4.5-10.0) K/mm3 RBC 4.00 L (4.2-5.4) M/mm3 Hgb 12.6 (12.0-15.0) g/dL Hct 36.0 L (37.0-47.0) % MCV 90.0 (80-100) fl MCH 31.5 (26-34) pg MCHC 35.0 (32-36) g/dl RDW 11.9 (11.5-14.5) % Plt Count 226 (150-375) k/mm3 MPV 9.6 (7.4-10.4) fl Immature Gran % (Auto) 0.3 (0-0.5) % Neut % (Auto) 67.1 (45.5-73.1) % Lymph % (Auto) 26.6 (18.3-44.2) % [place] % (Auto) 5.8 (2.6-8.5) % Eos % (Auto) 0.1 (0-4.4) % Baso % (Auto) 0.1 L (0.2-1.2) % Lymph # (Auto) 1.88 (0.9-3.2) K/mm3 [place] # (Auto) 0.4 (0.1-0.6) K/mm3 Eos # (Auto) 0.0 (0-0.3) K/mm3 Baso # (Auto) 0.0 (0.0-0.1) K/mm3 Abs Immat Gran (auto) 0.02 (0.00-0.031) K/mm3 Absolute Neuts (auto) 4.7 (1.3-6.7) K/mm3 Absolute Nucleated RBC 0.000 (0.0-0.012) K/mm3 Nucleated RBC % 0.0 (0.0-0.2) % Sodium 133 L (137-145) mmol/L Potassium 3.1 L (3.4-5.0) mmol/L Chloride 103 (98-107) mmol/L Carbon Dioxide 18 L (22-30) mmol/L Anion Gap 12 (4-12) mmol/L BUN 8 (7-17) mg/dL Creatinine 0.35 L (0.7-1.0) mg/dL Estim Creat Clear Calc 179 ml/min Estimated GFR > 60 (59 - ) Glucose 110 (65-110) mg/dL Calcium 8.8 (8.4-10.2) mg/dL Total Bilirubin 0.6 (0.2-1.3) mg/dL AST 21 (14-36) U/L ALT 17 (6-35) U/L Alkaline Phosphatase 49 (38-126) U/L Total Protein 7.4 (6.3-8.2) g/dL Albumin 4.3 (3.5-5.1) g/dL Lipase 72 (23-300) U/L Beta HCG, Quant 47009.00 mIU/ML Imaging Data Radiologist's impression: ITS Impressions Obstetrics Ultrasound 01/26/25 13:55 IMPRESSION: 1. Single living fetus with heart rate of 167 bpm. 2. Claude-rump length of 5.7 cm which is concordant within 3 days of the previously estimated gestational age by ultrasound of 11 weeks 6 day(s) with ultrasound estimated date of delivery (DEYANIRA) of 08/11/2025. 3. Small amount of fluid along side the left ovary which is enlarged with no internal vascular flow on color Doppler consistent with left ovarian torsion. Recommend [employer] consultation. Dr. Moscoso discussed these findings with Dr. Claudy Milan at 1:40 PM. Critical Care Time Critical Care Time Critical Care Time: No Discharge Plan Discharge Clinical Impression: Torsion of left ovary Patient Disposition: Home Condition: Serious Additional Instructions: Laparoscopic surgery Discharge Instructions (Tubal, Ovarian cyst removal, Endometriosis, etc) - Okay to shower in 24 hours, avoid baths/pools until you see your Doctor at your post-op visit - Nothing in the vagina for 4-6 weeks (no tampons or intercourse) - Limit lifting to less than 10-15 pounds and strenuous exercise for 2-4 weeks (One gallon of milk weighs 8lbs) Incision Care - If you have a dressing, remove when instructed: ?- Meng/clear dressings should be removed by day 7 unless it get wet/starts peeling off ? - White tape/gauze dressings should be removed/exchanged daily - If no dressing: ? - Keep your incision open to air ? - Do not place any ointments/creams/solutions unless specified by your Doctor ? - It is okay to shower daily and let soap/water run over your incision, do not scrub your incision ? - Keep your incision clean and dry, okay to place gauze/paper in your skin fold to keep sweat out - Dermabond (purple skin glue) may start peeling around 10-14 days, okay to remove after 14 days - If you see a stitch (string), do not pull/tug on it, leave it alone Encouraged Activities/OTC Medications that are safe (Unless your doctor specifically told you not to take/do them, and you're not allergic) - Colace 1 capsule twice daily or Miralax daily to prevent constipation - Tylenol 1000mg every 6-8 hours as needed for pain - Ibuprofen 600mg every 6-8 hours as needed for pain - You can use heating pads or ice packs as needed if it helps with discomfort - Getting up/walking short distances multiple times daily-- we do not recommend bed rest - Stay hydrated; try to drink 64oz/ 2L daily of water, smaller meals are okay (decreased appetite is common after anesthesia) CALL YOUR DOCTOR/GO TO THE EMERGENCY ROOM IF YOU: - Are having heavy vaginal bleeding (saturating 2 Kotex pads an hour) - Cannot keep food/liquids down - Have not urinated in 6 hours or are unable to - Have not had a bowel movement in 5 days - Have a concerning rash that might be an allergic reaction - Have a fever greater than 100.4 degrees Fahrenheit - Significant pain not relieved with your prescribed medications +/- OTC meds - Significant redness, drainage, or bleeding from your incision - Patient Language: Russian Prescriptions: New oxycodone 5 mg tablet 5 mg PO Q6H PRN (Reason: pain) Qty: 14 0RF potassium chloride 20 mEq packet 20 meq PO BID Qty: 30 0RF progesterone micronized [Prometrium] 200 mg capsule 200 mg PO HS 14 Days Qty: 14 0RF Continued Classic 28 mg iron- 800 mcg tablet PO ketoconazole 2 % shampoo 1 applic topical 2XW Follow-up/Referrals: Renée Coleman MD [Primary Care Provider, Family Practice] Mendel Ellington MD [Physician, [employer]] - 2 Weeks Stand Alone Forms: General Discharge Information Time of Disposition: 14:01
[2025-01-26] MEDS: ONDANSETRON INJ 4 MG/2 ML VIAL IV PUSH (13:52)
[2025-01-26] MEDS: SODIUM CHLORIDE 0.9% IV 2,000 ML 999 ML (13:52)
[2025-01-26 13:55] LABS: Beta HCG Quantitative 58615.00 mIU/ML
[2025-01-26] MEDS: HYDROmorphone HCL INJ (*CRX) 1 MG/ML SYR 0.5 MG IV PUSH (14:00)
--- NOTE | 2025-01-26 14:30 | WPDANESEPPF ---
Anes - Initial Pre Proc Eval Procedure: Operation Date: 01/26/25 15:00 Proposed Procedures p Laparoscopic Left Ovarian Cystectomy, Possible Left Oophorectomy - Mendel Ellington MD Date/Time: 01/26/25 14:30 Pre Op Diagnosis: 12 weeks preg, LLQ abd pain Patient Data Age: 30 Gender: F Height: 1.7 m Weight: 70 kg Last Vital Signs Temp 36.6 C 01/26/25 14:30 Pulse 75 01/26/25 14:30 Resp 20 01/26/25 14:11 BP 109/63 01/26/25 14:30 Pulse Ox 100 01/26/25 14:30 O2 Del Method Room Air 01/26/25 14:30 Allergies Allergy/AdvReac Type Severity Reaction Status Date / Time amoxicillin (From Augmentin) AdvReac Mild Hives Verified 01/26/25 14:29 clavulanic acid (From AdvReac Mild Hives Verified 01/26/25 14:29 Augmentin) Penicillins AdvReac Mild Hives Verified 01/26/25 14:29 Home Medications ?Medication ?Instructions ?Recorded ?Confirmed ?Type ketoconazole 2 % shampoo 1 applic topical 2XW 12/30/23 12/28/24 History vits no.126-ferrous fum tablet PO 12/28/24 12/28/24 History 28 mg iron-folic acid 800 mcg tablet (Classic ) Laboratory Tests 01/26/25 12:43 WBC 7.1 K/mm3 (4.5-10.0) RBC 4.00 L M/mm3 (4.2-5.4) Hgb 12.6 g/dL (12.0-15.0) Hct 36.0 L % (37.0-47.0) MCV 90.0 fl (80-100) MCH 31.5 pg (26-34) MCHC 35.0 g/dl (32-36) RDW 11.9 % (11.5-14.5) Plt Count 226 k/mm3 (150-375) MPV 9.6 fl (7.4-10.4) Immature Gran % (Auto) 0.3 % (0-0.5) Neut % (Auto) 67.1 % (45.5-73.1) Lymph % (Auto) 26.6 % (18.3-44.2) [place] % (Auto) 5.8 % (2.6-8.5) Eos % (Auto) 0.1 % (0-4.4) Baso % (Auto) 0.1 L % (0.2-1.2) Lymph # (Auto) 1.88 K/mm3 (0.9-3.2) [place] # (Auto) 0.4 K/mm3 (0.1-0.6) Eos # (Auto) 0.0 K/mm3 (0-0.3) Baso # (Auto) 0.0 K/mm3 (0.0-0.1) Abs Immat Gran (auto) 0.02 K/mm3 (0.00-0.031) Absolute Neuts (auto) 4.7 K/mm3 (1.3-6.7) Absolute Nucleated RBC 0.000 K/mm3 (0.0-0.012) Nucleated RBC % 0.0 % (0.0-0.2) Sodium 133 L mmol/L (137-145) Potassium 3.1 L mmol/L (3.4-5.0) Chloride 103 mmol/L (98-107) Carbon Dioxide 18 L mmol/L (22-30) Anion Gap 12 mmol/L (4-12) BUN 8 mg/dL (7-17) Creatinine 0.35 L mg/dL (0.7-1.0) Estim Creat Clear Calc 179 ml/min Estimated GFR > 60 (59 - ) Glucose 110 mg/dL (65-110) Calcium 8.8 mg/dL (8.4-10.2) Total Bilirubin 0.6 mg/dL (0.2-1.3) AST 21 U/L (14-36) ALT 17 U/L (6-35) Alkaline Phosphatase 49 U/L (38-126) Total Protein 7.4 g/dL (6.3-8.2) Albumin 4.3 g/dL (3.5-5.1) Lipase 72 U/L (23-300) Beta HCG, Quant 60528.00 mIU/ML Patient hx anesthesia problems: none Family hx anesthesia problems: none Results Review: All pre-operative results and documents have been reviewed as part of the pre-operative evaluation. [facility] Past Medical History Medical History (Updated 01/26/25 @ 14:32 by Jonathan Auguste MD) 12 weeks currently Endometriosis determined by laparoscopy Surgical History Surgical History H/O myomectomy 09/2021 S/P laparoscopy 05/2021 for left ovarian torsion Family History Family History Grandparent Breast cancer Sibling Diabetes mellitus Mother Hypertension Social History Social History Smoking status: Never smoker Second hand tobacco smoke exposure: No Alcohol intake: never Substance use: never Substance use type: does not use Do You Feel Safe in your Home?: Yes Lack of Transportation: No Lack of Food: Never True Current Housing: I Have Housing Concerned About Future Housing: No Difficulty Paying Gas/Electric Bills: No Difficulty Paying for Meds: No Currently Unemployed: No Education: Bachelor's Degree Difficulty w/ Childcare or Family Care: No Living arrangements: with family Additional living arrangements comments: 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 Gender identity (if verbalized by the patient): Female Sexual Orientation (if Verbalized by the Patient): Straight or Heterosexual Spiritual care concerns: No Anes - Eval Final PreProcedure Day of Procedure 01/26/25 14:30 Patient weight: normal Heart: regular rate and rhythm Lungs: clear to auscultation Airway: Mallampati scale class II Neurological: alert and oriented Last oral intake: 6 hours ASA classification: II Emergent: yes Anesthetic plan: proceed Anesthesia type and monitoring: general ETT and standard monitoring Results Review: All pre-operative results and documents have been reviewed as part of the pre-operative evaluation. Informed Consent: The patient's anesthetic plan and its attendant risks and benefits were discussed with the patient/family/POA. Questions were solicited and answers provided to the satisfaction of the patient/family/POA.
[2025-01-26] MEDS: LACTATED RINGERS 1,000 ML 30 ML IV CONT (14:31)
[2025-01-26] MEDS: FAMOTIDINE 20 MG/2 ML VIAL IV PUSH (14:47)
--- OUTSIDE RECORDS SUMMARY | 2025-01-26 15:01 | XMS_ITS | Clinical Summary ---
Author Organization [facility] Address [address] [place] [address] Care Team Providers Care Carrot Buncher Name Role Phone No, Physician Primary Care Provider Allergies Active Allergy Reactions Criticality Noted Date Comments Amoxicillin-Pot Clavulanate Unknown 07/12/19 22 Penicillins Unknown 07/11/2021 Medications PNV no.95/ferrous fum/folic ac ( ORAL) Take by mouth every morning Active acetaminophen (TYLENOL) 500 mg tablet Take 1 tablet (500 mg total) by mouth every 6 (six) hours as needed for pain 60 tablet 09/15/2021 Active ibuprofen (ADVIL,MOTRIN) 600 mg tablet Take 1 tablet (600 mg total) by mouth every 6 (six) hours as needed for pain 60 tablet 09/15/2021 Active oxyCODONE (ROXICODONE) 5 mg immediate release tabletIndicatio ns:Pain Take 1 tablet (5 mg total) by mouth every 4 (four) hours as needed for pain 15 tablet 09/15/2021 Active polyethylene glycol (MIRALAX) 17 gram packetIndicatio ns:constipation Take 1 packet (17 g total) by mouth daily 30 packet 09/15/2021 Active Active Problems Problem Noted Date Diagnosed Date Fibroid 08/30/2021 Overview (08/30/2021): Added automatically from request for surgery [id number] Endometriosis 08/30/2021 Overview (08/30/2021): Added automatically from request for surgery [id number] Surgical History Surgery Date Site/Laterality Comments LAPAROSCOPY 04/08/2021 - 04/07/2022 Ovarian torsion Medical History Medical History Date Comments Ovarian torsion Family History Medical History Relation Name Comments Anesthesia problems Neg Hx Social History Tobacco Use Types Packs/Day Years Used Date Smoking Tobacco: Never Smokeless Tobacco: Never AUDIT-C Answer Date Recorded Q1: How often do you have a drink containing alc ohol? 2-4 times a month 09/15/2021 Average Number of Drinks Not on file 022 Q3: How often do you have si x or more drinks on one occasion? Never 09/15/2021 Comments No Sex and Gender Information Value Date Recorded Sex Assigned at Not on file Legal Sex Female 3:44 PM CDT Gender Identity Not on file Sexual Orientation Not on file Occupation Industry Job Start Date Job End Date [employer] Not on file Not on file N ot on file Obstetrics History Para Term AB IAB SAB Ectopic Multiple Livin g Live Births 0 0 0 0 0 0 0 0 0 0 0 Last Filed Vital Signs Vital Sign Reading Time Taken Comments Blood Pressure 124/77 10/17/2021 7:53 AM CDT Pulse 68 09/15/2021 5:10 PM CDT Temperature 36.9 C (98.42 F) 09/15/2021 5:10 PM CDT Respiratory Rate 13 09/15/2021 5:10 PM CDT Oxygen Saturation 100% 09/15/2021 5:10 PM CDT Inhaled Oxygen Concentration - - Weight 71.8 kg (158 lb 3.2 oz) 10/17/2021 7:53 A M CDT Height 170.2 cm (5' 7) 10/17/2021 7:53 AM CDT Body Mass Index 24.78 10/17/2021 7:53 AM CDT Plan of Treatment Health Maintenance Due Date Last Done Comments Cervical Cancer Screening 1993 Depression Screening 1993 Hepatitis C Screening 1993 DTaP/Tdap/Td Vaccine (1 - Tdap) 01/24/2004 Varicella Vaccines (1 of 2 - 13+ 2-dose series) 2006 Hepatitis B Screening 2011 Regular Well Visit/Exam 18-64 2011 HPV Vaccines (1 - 3-dose SCD M series) 01/24/2020 Covid-19 Vaccine (3 - 2024-2 6 season) 2024 12/19/2020, 11/27/2020 Influenza Vaccine (#1) 2024 Pneumococcal vaccine <65 Aged Out No longer eligible based on patient's age to complete this topic Insurance Care Teams Carrot Buncher Relationship Specialty Start Date End Date No, Physician PCP - General 07/03/21
--- NOTE | 2025-01-26 15:04 | P.HP_ITS ---
H&P: HPI History of Present Illness Date/Time: 01/26/25 15:04 30 female presents with acute onset left quadrant pain earlier this. Also 12 weeks gestation no bleeding. Does have a history left ovarian torsion in the past. Chief Complaint: Abdominal pain Review of Systems Review of Systems: All systems reviewed & are unremarkable except as noted in HPI and below PMFSH Past Medical History Medical History 12 weeks currently Endometriosis determined by laparoscopy Surgical History Surgical History H/O myomectomy 09/2021 S/P laparoscopy 05/2021 for left ovarian torsion Family History Family History Grandparent Breast cancer Sibling Diabetes mellitus Mother Hypertension Social History Social History Smoking status: Never smoker Second hand tobacco smoke exposure: No Alcohol intake: never Substance use: never Substance use type: does not use Do You Feel Safe in your Home?: Yes Lack of Transportation: No Lack of Food: Never True Current Housing: I Have Housing Concerned About Future Housing: No Difficulty Paying Gas/Electric Bills: No Difficulty Paying for Meds: No Currently Unemployed: No Education: Bachelor's Degree Difficulty w/ Childcare or Family Care: No Living arrangements: with family Additional living arrangements comments: 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 Gender identity (if verbalized by the patient): Female Sexual Orientation (if Verbalized by the Patient): Straight or Heterosexual Spiritual care concerns: No Meds Home Medications and Allergies Home Medications ?Medication ?Instructions ?Recorded ?Confirmed ?Type ketoconazole 2 % shampoo 1 applic topical 2XW 2 4 12/28/24 History vits no.126-ferrous fum tablet PO 12/28/24 History 28 mg iron-folic acid 800 mcg tablet (Classic ) Allergies Allergy/AdvReac Type Severity Reaction Status Date / Time amoxicillin (From Augmentin) AdvReac Mild Hives Verified 01/26/25 14:29 clavulanic acid (From AdvReac Mild Hives Verified 01/26/25 14:29 Augmentin) Penicillins AdvReac Mild Hives Verified 01/26/25 14:29 Vital Signs Vital Signs - 24 hr 01/26/25 12:23 01/26/25 13:25 01/26/25 13:26 Temperature 97.3 F L Pulse Rate 92 Respiratory Rate 16 Blood Pressure 129/69 117/65 Pulse Oximetry 100 100 100 Oxygen Delivery Room Air 01/26/25 13:31 01/26/25 14:11 01/26/25 14:30 Temperature 97.8 F Pulse Rate 68 75 Respiratory Rate 20 Blood Pressure 115/69 116/68 109/63 Pulse Oximetry 100 100 100 Oxygen Delivery Room Air 01/26/25 14:30 Temperature 97.8 F Pulse Rate 75 Respiratory Rate 20 Blood Pressure 109/63 Pulse Oximetry 100 Oxygen Delivery Room Air Exam Resp: Effort & Inspection: normal respiratory effort Auscultation: clear to auscultation bilaterally Cardio: Rate: regular rate Rhythm: regular rhythm GI: Inspection: normal to inspection GI Palp: Yes Tenderness to palpation present (GI) Auscultation: normal bowel sounds H&P: Results Labs Labs: Short CBC 01/26/25 Range/Units 12:43 WBC 7.1 (4.5-10.0) K/mm3 Hgb 12.6 (12.0-15.0) g/dL Hct 36.0 L (37.0-47.0) % Plt Count 226 (150-375) k/mm3 [facility] 01/26/25 12:43 Sodium 133 L Potassium 3.1 L Chloride 103 Carbon Dioxide 18 L BUN 8 Creatinine 0.35 L Glucose 110 Calcium 8.8 Liver Function 01/26/25 Range/Units 12:43 Total Bilirubin 0.6 (0.2-1.3) mg/dL AST 21 (14-36) U/L ALT 17 (6-35) U/L Alkaline Phosphatase 49 (38-126) U/L Albumin 4.3 (3.5-5.1) g/dL Assessment and Plan Assessment and plan (1) Acute pelvic pain, female: Code(s): R10.2 - Pelvic and perineal pain Status: Acute Assessment and Plan: Likely ovarian torsion. Discussed with patient likely oophorectomy.
--- NOTE | 2025-01-26 15:07 | WPDHPUPDATE1 ---
History and Physical Update Update Date/Time: 01/26/25 15:07 History and Physical has been reviewed, including an updated exam of the patient. There are NO changes in the patient's condition. Risks, benefits, and alternatives have been discussed and questions answered. Patient agrees to proceed with procedure.
--- NOTE | 2025-01-26 16:06 | S_PTH ---
PATIENT: Dejah Horton LOC: [facility]#:[id number] AGE/SX: 30/F ROOM: RE01/26/[address]: Benjy Milan APRN : 1995 BED: DIS: 01/26/2025 SPEC #: [id number] RECD: 01/27/25 10:54 STATUS: GASPER REQ #: [id number] SKINNY: 01/26/25 16:[address]: Mendel Ellington DEPT: [facility] Surgical RECD BY: Sissy Ray ENTERED: 01/27/25 10:56 SP TYPE: Surgical OTHR DR: Renée Coleman, MD Benjy Milan APRN Tissues: A - Ovary Procedures: Hematoxylin and Eosin Stain Gross and Microscopic Level 4
--- NOTE | 2025-01-26 16:34 | W.PM.PROC2 ---
Procedure Note - Detailed Date of Procedure 01/26/25 Pre-op Diagnosis 12 weeks preg, LLQ abd pain Post-op Diagnosis Same (Left ovarian torsion) Procedure Performed 1. Diagnostic laparoscopy 2. Laparoscopic left salpingo oophorectomy Surgeon Mendel Ellington MD Anesthesia General Findings Enlarged globular uterus. Left tube and ovary torsed and in the posterior cul-de-sac. Description of Procedure Patient prepped in the usual manner for this procedure. No vaginal prep was performed. Will abdominal midline trocar was placed under direct visualization and the right and left lower trocar incisions were also placed under direct visualization. Evaluation of pelvis revealed findings as noted above. Once the ovary was able to be removed from the posterior cul-de-sac it was untwisted x3. Once this was done there was no return of blood flow for 5minutes with and at this point sitting was made to remove the tube and ovary. Using the LigaSure instrument the left inferior pelvic ligament was cauterized and cut and the left tube and ovary were placed in Endo-Catch bag. This was then brought out through the right lower quadrant. The of 0 Vicryl was then used to approximate the fascia on the larger right lower quadrant incision and then 4-0 Monocryl was used to approximate all the other skin incisions after the gas was allowed to escape. There is been no significant bleeding and no other abnormalities were noted. Id Patient was then sent to recovery room in stable condition. Estimated Blood Loss 10 Drains No Packing No Pathology Yes Complications No immediate complications Condition Stable Disposition PACU [facility] Billing Surgery - Charge Forward: Surgery Billing
--- NOTE | 2025-01-26 17:31 | SUR.PHASEI ---
1715: OB RN at bedside to perform tones.
[2025-01-26] MEDS: POTASSIUM CHLORIDE 20 MEQ ER TABLET PO (18:34)
--- OUTSIDE RECORDS SUMMARY | 2025-01-27 16:34 | XMS_ITS | Clinical Summary ---
Author Organization [facility] Address [address] [place] [address] Care Team Providers Care Designer Architect Name Role Phone No, Physician Primary Care Provider [phone] Allergies Active Allergy Reactions Criticality Noted Date [...] (08/30/2021): Added automatically from request for surgery [id number] Endometriosis 08/30/2021 Overview (08/30/2021): Added automatically from request for surgery [id number] Surgical History Surgery Date Site/Laterality Comments LAPAROSCOPY [...] to complete this topic Insurance Care Teams Designer Architect Relationship Specialty Start Date End Date No, Physician PCP - General 07/03/21
== END 2025-01-26 18:52 | disposition home or self-care (01) ==
PROVIDERS: Obstetrics & Gynecology; PCP Family Medicine
PROC: (CPT 49320; principal; 2025-01-26 15:00)
DX: N83.53 Torsion of ovary, ovarian pedicle and fallopian tube (principal); G89.18 Other acute postprocedural pain; N80.9 Endometriosis, unspecified; Z80.3 Family history of malignant neoplasm of breast
CPT/HCPCS: 58661; 36415; 76801; 76817; 80053; 83690; 84702; 85025; 88305; 96374; 96375; 99285; A9270; J1171; J2003; J2371; J2405; J2704; J3010; J7030; J7120